=== PATIENT | male | born 1970 | race Caucasian/White ===

== ENCOUNTER → 2019-12-30 | Outpatient (CLI) | payer BC ==
[2019-12-30 09:59] LABS: HEMATOCRIT 43.9 % (42.0-52.0); HEMOGLOBIN 14.4 g/dl (14.0-18.0); MEAN CELL VOLUME 87.5 fl (80.0-94.0); MEAN CORPUSCULAR HGB 28.7 pg (27.0-31.0); MEAN CORPUSCULAR HGB CONC 32.8 g/dl (33.0-37.0); MEAN PLATELET VOLUME 9.3 fl (9.6-12.3); RED BLOOD COUNT 5.02 10*6/uL (4.50-5.90); RED CELL DISTRI WIDTH 12.3 % (0-14.5); WHITE BLOOD COUNT 10.2 10*3/uL (4.8-10.8)
[2019-12-30 10:15] LABS: ALBUMIN 3.4 gm/dl (3.1-4.5); ALKALINE PHOSPHATASE 64 U/L (45-117); BUN 9 mg/dl (7-24); CHLORIDE 106 mmol/L (98-107); CHOLESTEROL 141 mg/dL (<200); CREATININE 0.91 mg/dL (0.70-1.30); HDL CHOLESTEROL 43 mg/dl (40-60); LDL CHOLESTEROL 71 mg/dL (9-159); POTASSIUM 4.1 mmol/L (3.5-5.1); SGOT/AST 11 IU/L (3-35); SGPT/ALT 30 U/L (12-78); SODIUM 141 mmol/L (136-145); TOTAL PROTEIN 7.6 gm/dL (6.4-8.2); TRIGLYCERIDES 134 mg/dl (<150); VLDL CHOLESTEROL 27 mg/dL (6-40)
== END | disposition home or self-care (01) ==
LOC: LAB 09:30
PROVIDERS: Physician Assistant
DX: Z12.5 Encounter for screening for malignant neoplasm of prostate (principal); J02.9 Acute pharyngitis, unspecified; R53.83 Other fatigue

== ENCOUNTER 2020-04-18 11:39 | Emergency (ER) | payer BC ==
[~2020-04-18] VITALS: Ht 177.8 cm; Wt 86.2 kg
[2020-04-18 12:29] LABS: BASO # 0.1 10*3/uL (0.0-0.1); BASO % 0.7 % (0.0-1.0); EOS # 0.1 10*3/uL (0.0-0.4); EOS % 1.2 % (1.0-4.0); HEMATOCRIT 45.6 % (42.0-52.0); LYMPH # 2.2 10*3/uL (1.3-4.4); LYMPH % 31.9 % (27.0-41.0); MEAN CELL VOLUME 87.5 fl (80.0-94.0); MEAN CORPUSCULAR HGB 29.2 pg (27.0-31.0); MEAN CORPUSCULAR HGB CONC 33.3 g/dl (33.0-37.0); MEAN PLATELET VOLUME 9.3 fl (9.6-12.3); MONO # 0.5 10*3/uL (0.1-1.0); MONO % 7.8 % (3.0-9.0); NEUT % 58.3 % (47.0-73.0); PLATELET COUNT AUTOMATED 285 10*3/uL (130-400); RED BLOOD COUNT 5.21 10*6/uL (4.50-5.90); RED CELL DISTRI WIDTH 12.6 % (0-14.5); WHITE BLOOD COUNT 6.8 10*3/uL (4.8-10.8)
[2020-04-18 12:38] LABS: ACT PARTIAL THROMBO TIME 24.1 SECONDS (20.0-32.1)
[2020-04-18 12:42] LABS: BUN 11 mg/dl (7-24); CHLORIDE 107 mmol/L (98-107); CREATININE 0.97 mg/dL (0.70-1.30); POTASSIUM 4.1 mmol/L (3.5-5.1); SODIUM 139 mmol/L (136-145)
[2020-04-18 12:43] LABS: TROPONIN I < 0.015 ng/ml (<0.045)
== END 2020-04-18 20:00 | disposition short-term general hospital (02) ==
LOC: ED 11:39
PROVIDERS: Emergency Medicine
DX: C71.9 Malignant neoplasm of brain, unspecified (principal); R79.1 Abnormal coagulation profile; Z91.040 Latex allergy status

== ENCOUNTER → 2020-04-30 | Outpatient (CLI) | payer BC | END | disposition home or self-care (01) | LOC: RESCLI 00:54 | DX: C71.9 Malignant neoplasm of brain, unspecified (principal); Z76.89 Persons encountering health services in other specified circumstances; Z79.899 Other long term (current) drug therapy; Z98.890 Other specified postprocedural states ==

== ENCOUNTER → 2020-07-10 | Outpatient (CLI) | payer BC ==
[2020-07-10 10:05] LABS: BASO % 0.1 % (0.0-1.0); EOS % 0.3 % (1.0-4.0); HEMATOCRIT 37.3 % (42.0-52.0); LYMPH % 24.8 % (27.0-41.0); MEAN CELL VOLUME 92.8 fl (80.0-94.0); MEAN CORPUSCULAR HGB 30.3 pg (27.0-31.0); MEAN CORPUSCULAR HGB CONC 32.7 g/dl (33.0-37.0); MEAN PLATELET VOLUME 8.8 fl (9.6-12.3); MONO # 0.9 10*3/uL (0.1-1.0); MONO % 11.8 % (3.0-9.0); NEUT # 4.8 10*3/uL (2.3-7.9); NEUT % 60.8 % (47.0-73.0); NUCLEATED RED BLOOD CELL 0.3 % (0.0-0.0); PLATELET COUNT AUTOMATED 205 10*3/uL (130-400); RED BLOOD COUNT 4.02 10*6/uL (4.50-5.90); RED CELL DISTRI WIDTH 17.1 % (0-14.5); WHITE BLOOD COUNT 7.9 10*3/uL (4.8-10.8)
[2020-07-10 10:32] LABS: ALBUMIN 3.4 gm/dl (3.1-4.5); ALKALINE PHOSPHATASE 43 U/L (45-117); BUN 24 mg/dl (7-24); CHLORIDE 102 mmol/L (98-107); CREATININE 0.83 mg/dL (0.70-1.30); POTASSIUM 3.8 mmol/L (3.5-5.1); SGOT/AST 13 IU/L (3-35); SGPT/ALT 62 U/L (12-78); SODIUM 137 mmol/L (136-145); TOTAL PROTEIN 6.8 gm/dL (6.4-8.2)
== END | disposition home or self-care (01) ==
LOC: LAB 00:36
PROVIDERS: Physician Assistant Medical; ATTEND Nurse Anesthetist, Certified Registered
DX: C71.1 Malignant neoplasm of frontal lobe (principal)

== ENCOUNTER → 2020-07-16 | Outpatient (CLI) | payer BC ==
[2020-07-16 11:39] LABS: BASO % 0.2 % (0.0-1.0); EOS % 0.1 % (1.0-4.0); HEMATOCRIT 39.2 % (42.0-52.0); LYMPH # 1.3 10*3/uL (1.3-4.4); LYMPH % 14.8 % (27.0-41.0); MEAN CELL VOLUME 93.6 fl (80.0-94.0); MEAN CORPUSCULAR HGB 30.8 pg (27.0-31.0); MEAN CORPUSCULAR HGB CONC 32.9 g/dl (33.0-37.0); MEAN PLATELET VOLUME 8.9 fl (9.6-12.3); MONO # 0.8 10*3/uL (0.1-1.0); MONO % 8.8 % (3.0-9.0); NEUT # 6.5 10*3/uL (2.3-7.9); NEUT % 73.6 % (47.0-73.0); NUCLEATED RED BLOOD CELL 0.2 % (0.0-0.0); PLATELET COUNT AUTOMATED 186 10*3/uL (130-400); RED BLOOD COUNT 4.19 10*6/uL (4.50-5.90); RED CELL DISTRI WIDTH 17.2 % (0-14.5); WHITE BLOOD COUNT 8.8 10*3/uL (4.8-10.8)
[2020-07-16 11:57] LABS: ALBUMIN 3.5 gm/dl (3.1-4.5); ALKALINE PHOSPHATASE 44 U/L (45-117); BUN 23 mg/dl (7-24); CHLORIDE 103 mmol/L (98-107); CREATININE 0.91 mg/dL (0.70-1.30); POTASSIUM 4.2 mmol/L (3.5-5.1); SGOT/AST 15 IU/L (3-35); SGPT/ALT 63 U/L (12-78); SODIUM 138 mmol/L (136-145)
== END | disposition home or self-care (01) ==
LOC: LAB 11:00
PROVIDERS: ATTEND Internal Medicine Cardiovascular Disease
DX: C71.1 Malignant neoplasm of frontal lobe (principal)

== ENCOUNTER → 2020-07-19 | Outpatient (CLI) | payer BC | END | disposition home or self-care (01) | LOC: RESCLI 01:14 | PROVIDERS: ATTEND Internal Medicine | DX: C71.9 Malignant neoplasm of brain, unspecified (principal); R60.9 Edema, unspecified; E83.42 Hypomagnesemia; R11.2 Nausea with vomiting, unspecified; T45.1X5A Adverse effect of antineoplastic and immunosuppressive drugs, initial encounter; K59.03 Drug induced constipation; K21.9 Gastro-esophageal reflux disease without esophagitis; Z29.8 Encounter for other specified prophylactic measures; Z79.899 Other long term (current) drug therapy; Z79.52 Long term (current) use of systemic steroids; Z98.890 Other specified postprocedural states ==

== ENCOUNTER → 2020-07-31 | Outpatient (CLI) | payer BC ==
[2020-07-31 11:58] LABS: BASO % 0.1 % (0.0-1.0); EOS % 0.2 % (1.0-4.0); HEMATOCRIT 38.8 % (42.0-52.0); LYMPH # 1.4 10*3/uL (1.3-4.4); LYMPH % 16.4 % (27.0-41.0); MEAN CELL VOLUME 93.9 fl (80.0-94.0); MEAN CORPUSCULAR HGB 30.8 pg (27.0-31.0); MEAN CORPUSCULAR HGB CONC 32.7 g/dl (33.0-37.0); MEAN PLATELET VOLUME 9.1 fl (9.6-12.3); MONO # 0.9 10*3/uL (0.1-1.0); MONO % 10.7 % (3.0-9.0); NEUT # 6.2 10*3/uL (2.3-7.9); NEUT % 70.8 % (47.0-73.0); PLATELET COUNT AUTOMATED 197 10*3/uL (130-400); RED BLOOD COUNT 4.13 10*6/uL (4.50-5.90); RED CELL DISTRI WIDTH 16.4 % (0-14.5); WHITE BLOOD COUNT 8.8 10*3/uL (4.8-10.8)
[2020-07-31 12:26] LABS: ALBUMIN 3.6 gm/dl (3.1-4.5); BUN 24 mg/dl (7-24); CHLORIDE 99 mmol/L (98-107); CREATININE 0.82 mg/dL (0.70-1.30); SGOT/AST 15 IU/L (3-35); SGPT/ALT 61 U/L (12-78); SODIUM 134 mmol/L (136-145); TOTAL PROTEIN 6.8 gm/dL (6.4-8.2)
[2020-07-31 12:27] LABS: ALKALINE PHOSPHATASE 39 U/L (45-117)
== END | disposition home or self-care (01) ==
LOC: LAB 11:05
PROVIDERS: ATTEND Physician Assistant Medical
DX: C71.1 Malignant neoplasm of frontal lobe (principal)

== ENCOUNTER → 2020-08-09 | Outpatient (CLI) | payer BC ==
[2020-08-09 10:48] LABS: BASO % 0.2 % (0.0-1.0); EOS % 0.3 % (1.0-4.0); HEMATOCRIT 38.4 % (42.0-52.0); LYMPH % 18.8 % (27.0-41.0); MEAN CELL VOLUME 93.2 fl (80.0-94.0); MEAN CORPUSCULAR HGB 31.3 pg (27.0-31.0); MEAN CORPUSCULAR HGB CONC 33.6 g/dl (33.0-37.0); MEAN PLATELET VOLUME 8.7 fl (9.6-12.3); MONO # 1.1 10*3/uL (0.1-1.0); MONO % 10.9 % (3.0-9.0); NEUT # 7.1 10*3/uL (2.3-7.9); NEUT % 67.7 % (47.0-73.0); NUCLEATED RED BLOOD CELL 0.4 % (0.0-0.0); PLATELET COUNT AUTOMATED 192 10*3/uL (130-400); RED BLOOD COUNT 4.12 10*6/uL (4.50-5.90); RED CELL DISTRI WIDTH 15.9 % (0-14.5); WHITE BLOOD COUNT 10.5 10*3/uL (4.8-10.8)
[2020-08-09 10:57] LABS: ACT PARTIAL THROMBO TIME 20.6 SECONDS (20.0-32.1); INTERNATIONAL NORM RATIO 0.9 (2.0-3.5)
[2020-08-09 11:02] LABS: ALBUMIN 3.6 gm/dl (3.1-4.5); ALKALINE PHOSPHATASE 44 U/L (45-117); BUN 31 mg/dl (7-24); CHLORIDE 103 mmol/L (98-107); CREATININE 0.91 mg/dL (0.70-1.30); POTASSIUM 4.1 mmol/L (3.5-5.1); SGOT/AST 10 IU/L (3-35); SGPT/ALT 62 U/L (12-78); SODIUM 137 mmol/L (136-145); TOTAL PROTEIN 6.9 gm/dL (6.4-8.2)
== END | disposition home or self-care (01) ==
LOC: LAB 04:33
PROVIDERS: ATTEND Internal Medicine Medical Oncology
DX: C71.0 Malignant neoplasm of cerebrum, except lobes and ventricles (principal); T45.1X5A Adverse effect of antineoplastic and immunosuppressive drugs, initial encounter; R11.0 Nausea

== ENCOUNTER → 2020-08-15 | Outpatient (CLI) | payer BC ==
[2020-08-15 09:16] LABS: HEMATOCRIT 39.2 % (42.0-52.0); MEAN CELL VOLUME 95.4 fl (80.0-94.0); MEAN CORPUSCULAR HGB 31.4 pg (27.0-31.0); MEAN CORPUSCULAR HGB CONC 32.9 g/dl (33.0-37.0); NUCLEATED RED BLOOD CELL 0.1 10*3/uL (0.0-0.0); NUCLEATED RED BLOOD CELL 0.3 % (0.0-0.0); PLATELET COUNT AUTOMATED 156 10*3/uL (130-400); RED BLOOD COUNT 4.11 10*6/uL (4.50-5.90); RED CELL DISTRI WIDTH 15.6 % (0-14.5)
[2020-08-15 09:28] LABS: ACT PARTIAL THROMBO TIME 20.1 SECONDS (20.0-32.1)
[2020-08-15 09:31] LABS: ALBUMIN 3.3 gm/dl (3.1-4.5); ALKALINE PHOSPHATASE 75 U/L (45-117); BUN 23 mg/dl (7-24); CHLORIDE 103 mmol/L (98-107); CREATININE 1.02 mg/dL (0.70-1.30); SGOT/AST 13 IU/L (3-35); SGPT/ALT 54 U/L (12-78); SODIUM 138 mmol/L (136-145); TOTAL PROTEIN 6.7 gm/dL (6.4-8.2)
[2020-08-15 09:55] LABS: TOTAL CELLS COUNTED 100 #CELLS
[2020-08-15 09:57] LABS: PLATELET SUFFICIENCY NORMAL (NORMAL)
== END | disposition home or self-care (01) ==
LOC: LAB 01:01
PROVIDERS: Internal Medicine Medical Oncology; ATTEND Physician Assistant Medical
DX: C71.1 Malignant neoplasm of frontal lobe (principal)

== ENCOUNTER → 2020-08-20 | Outpatient (CLI) | payer BC ==
[2020-08-20 09:37] LABS: HEMATOCRIT 37.9 % (42.0-52.0); MEAN CELL VOLUME 97.4 fl (80.0-94.0); MEAN CORPUSCULAR HGB 31.4 pg (27.0-31.0); MEAN CORPUSCULAR HGB CONC 32.2 g/dl (33.0-37.0); MEAN PLATELET VOLUME 9.8 fl (9.6-12.3); NUCLEATED RED BLOOD CELL 0.1 % (0.0-0.0); PLATELET COUNT AUTOMATED 115 10*3/uL (130-400); RED BLOOD COUNT 3.89 10*6/uL (4.50-5.90); RED CELL DISTRI WIDTH 15.6 % (0-14.5); WHITE BLOOD COUNT 13.4 10*3/uL (4.8-10.8)
[2020-08-20 09:46] LABS: ACT PARTIAL THROMBO TIME 20.8 SECONDS (20.0-32.1); INTERNATIONAL NORM RATIO 0.9 (2.0-3.5)
[2020-08-20 10:00] LABS: PLATELET SUFFICIENCY LOW (NORMAL); TOTAL CELLS COUNTED 100 #CELLS
[2020-08-20 10:36] LABS: ALBUMIN 3.5 gm/dl (3.1-4.5); BUN 23 mg/dl (7-24); CHLORIDE 103 mmol/L (98-107); POTASSIUM 3.9 mmol/L (3.5-5.1); SGOT/AST 21 IU/L (3-35); SGPT/ALT 61 U/L (12-78); SODIUM 138 mmol/L (136-145)
[2020-08-20 10:39] LABS: ALKALINE PHOSPHATASE 160 U/L (45-117); TOTAL PROTEIN 6.7 gm/dL (6.4-8.2)
== END | disposition home or self-care (01) ==
LOC: LAB 00:32
PROVIDERS: ATTEND Physician Assistant Medical
DX: C71.1 Malignant neoplasm of frontal lobe (principal)

== ENCOUNTER → 2020-08-27 | Outpatient (CLI) | payer BC ==
[~2020-08-27] MED LIST: 'KLONOPIN0.5 MG PO; 8 HOUR PAIN RE650 M1 PO; DEXAMETHASONE2 MG PO; LASIX20 MG PO; LEVETIRACETAM500 MG PO; MULTIVITAMINS1 EAC5 PO; Magnesium Oxid400 MG PO; OXYCODONE HCL5 M1 PO; PANTOPRAZOLE SO40 MG PO; POTASSIUM99 M3 PO; SENOKOT8.6 MG PO; SEPTDS PO; VITAMIN C500 M4 PO; ZINC50 M4 PO
[2020-08-27 10:43] LABS: HEMATOCRIT 37.7 % (42.0-52.0); MEAN CELL VOLUME 96.9 fl (80.0-94.0); MEAN CORPUSCULAR HGB 31.4 pg (27.0-31.0); MEAN CORPUSCULAR HGB CONC 32.4 g/dl (33.0-37.0); MEAN PLATELET VOLUME 8.8 fl (9.6-12.3); NUCLEATED RED BLOOD CELL 0.2 % (0.0-0.0); PLATELET COUNT AUTOMATED 203 10*3/uL (130-400); RED BLOOD COUNT 3.89 10*6/uL (4.50-5.90); RED CELL DISTRI WIDTH 15.4 % (0-14.5); WHITE BLOOD COUNT 13.7 10*3/uL (4.8-10.8)
[2020-08-27 10:55] LABS: INTERNATIONAL NORM RATIO 0.9 (2.0-3.5)
[2020-08-27 11:01] LABS: PLATELET SUFFICIENCY NORMAL (NORMAL); TOTAL CELLS COUNTED 100 #CELLS
[2020-08-27 11:14] LABS: ALBUMIN 3.5 gm/dl (3.1-4.5); BUN 23 mg/dl (7-24); CHLORIDE 105 mmol/L (98-107); CREATININE 0.77 mg/dL (0.70-1.30); POTASSIUM 3.6 mmol/L (3.5-5.1); SGOT/AST 13 IU/L (3-35); SGPT/ALT 70 U/L (12-78); SODIUM 139 mmol/L (136-145); TOTAL PROTEIN 6.9 gm/dL (6.4-8.2)
[2020-08-27 11:15] LABS: ALKALINE PHOSPHATASE 82 U/L (45-117)
[2020-08-27 11:28] LABS: ACT PARTIAL THROMBO TIME < 20.0 SECONDS (20.0-32.1)
== END | disposition home or self-care (01) ==
LOC: LAB 00:30 → EDSTATUS 10:14 → LAB 14:30
PROVIDERS: ATTEND Physician Assistant Medical
DX: C71.1 Malignant neoplasm of frontal lobe (principal); R73.03 Prediabetes

== ENCOUNTER → 2020-09-04 | Outpatient (CLI) | payer BC ==
[2020-09-04 10:07] LABS: BASO % 0.1 % (0.0-1.0); EOS % 0.3 % (1.0-4.0); HEMATOCRIT 37.8 % (42.0-52.0); LYMPH # 1.4 10*3/uL (1.3-4.4); LYMPH % 11.6 % (27.0-41.0); MEAN CELL VOLUME 95.2 fl (80.0-94.0); MEAN CORPUSCULAR HGB 31.7 pg (27.0-31.0); MEAN CORPUSCULAR HGB CONC 33.3 g/dl (33.0-37.0); MEAN PLATELET VOLUME 8.6 fl (9.6-12.3); MONO # 1.1 10*3/uL (0.1-1.0); MONO % 9.5 % (3.0-9.0); NEUT # 9.3 10*3/uL (2.3-7.9); NEUT % 77.1 % (47.0-73.0); PLATELET COUNT AUTOMATED 196 10*3/uL (130-400); RED BLOOD COUNT 3.97 10*6/uL (4.50-5.90); RED CELL DISTRI WIDTH 14.8 % (0-14.5)
[2020-09-04 10:37] LABS: ACT PARTIAL THROMBO TIME 20.2 SECONDS (20.0-32.1); INTERNATIONAL NORM RATIO 0.9 (2.0-3.5)
[2020-09-04 10:39] LABS: ALBUMIN 3.4 gm/dl (3.1-4.5); ALKALINE PHOSPHATASE 69 U/L (45-117); BUN 19 mg/dl (7-24); CHLORIDE 103 mmol/L (98-107); CREATININE 0.88 mg/dL (0.70-1.30); POTASSIUM 3.6 mmol/L (3.5-5.1); SGOT/AST 18 IU/L (3-35); SGPT/ALT 69 U/L (12-78); SODIUM 138 mmol/L (136-145); TOTAL PROTEIN 6.7 gm/dL (6.4-8.2)
== END | disposition home or self-care (01) ==
LOC: LAB 04:59
PROVIDERS: ATTEND Physician Assistant Medical
DX: C71.1 Malignant neoplasm of frontal lobe (principal)

== ENCOUNTER → 2020-09-09 | Outpatient (CLI) | payer BC ==
[2020-09-09 11:36] LABS: BASO % 0.2 % (0.0-1.0); HEMATOCRIT 39.2 % (42.0-52.0); LYMPH # 0.8 10*3/uL (1.3-4.4); LYMPH % 7.3 % (27.0-41.0); MEAN CORPUSCULAR HGB 31.8 pg (27.0-31.0); MEAN CORPUSCULAR HGB CONC 32.4 g/dl (33.0-37.0); MEAN PLATELET VOLUME 8.7 fl (9.6-12.3); MONO # 0.8 10*3/uL (0.1-1.0); MONO % 7.2 % (3.0-9.0); NEUT # 9.3 10*3/uL (2.3-7.9); NEUT % 83.4 % (47.0-73.0); PLATELET COUNT AUTOMATED 186 10*3/uL (130-400); RED CELL DISTRI WIDTH 14.6 % (0-14.5); WHITE BLOOD COUNT 11.2 10*3/uL (4.8-10.8)
[2020-09-09 11:47] LABS: ACT PARTIAL THROMBO TIME 20.5 SECONDS (20.0-32.1); INTERNATIONAL NORM RATIO 0.9 (2.0-3.5)
[2020-09-09 12:04] LABS: ALBUMIN 3.5 gm/dl (3.1-4.5); ALKALINE PHOSPHATASE 64 U/L (45-117); BUN 18 mg/dl (7-24); CHLORIDE 104 mmol/L (98-107); POTASSIUM 4.2 mmol/L (3.5-5.1); SGOT/AST 14 IU/L (3-35); SGPT/ALT 74 U/L (12-78); SODIUM 140 mmol/L (136-145); TOTAL PROTEIN 6.6 gm/dL (6.4-8.2)
== END | disposition home or self-care (01) ==
LOC: LAB 10:56
PROVIDERS: ATTEND Physician Assistant Medical
DX: C71.1 Malignant neoplasm of frontal lobe (principal)

== ENCOUNTER → 2020-09-17 | Outpatient (CLI) | payer BC ==
[2020-09-17 11:06] LABS: EOS % 0.4 % (1.0-4.0); HEMATOCRIT 38.9 % (42.0-52.0); LYMPH % 10.7 % (27.0-41.0); MEAN CELL VOLUME 95.6 fl (80.0-94.0); MEAN CORPUSCULAR HGB 31.7 pg (27.0-31.0); MEAN CORPUSCULAR HGB CONC 33.2 g/dl (33.0-37.0); MEAN PLATELET VOLUME 9.1 fl (9.6-12.3); MONO # 0.8 10*3/uL (0.1-1.0); MONO % 8.5 % (3.0-9.0); NEUT # 7.7 10*3/uL (2.3-7.9); NEUT % 79.3 % (47.0-73.0); PLATELET COUNT AUTOMATED 183 10*3/uL (130-400); RED BLOOD COUNT 4.07 10*6/uL (4.50-5.90); RED CELL DISTRI WIDTH 14.6 % (0-14.5); WHITE BLOOD COUNT 9.7 10*3/uL (4.8-10.8)
[2020-09-17 11:19] LABS: ACT PARTIAL THROMBO TIME 20.5 SECONDS (20.0-32.1); ALBUMIN 3.6 gm/dl (3.1-4.5); ALKALINE PHOSPHATASE 57 U/L (45-117); BUN 21 mg/dl (7-24); CHLORIDE 103 mmol/L (98-107); CREATININE 0.84 mg/dL (0.70-1.30); INTERNATIONAL NORM RATIO 0.9 (2.0-3.5); POTASSIUM 3.7 mmol/L (3.5-5.1); SGOT/AST 21 IU/L (3-35); SGPT/ALT 91 U/L (12-78); SODIUM 138 mmol/L (136-145); TOTAL PROTEIN 6.7 gm/dL (6.4-8.2)
== END | disposition home or self-care (01) ==
LOC: LAB 00:25
PROVIDERS: ATTEND Physician Assistant Medical
DX: C71.1 Malignant neoplasm of frontal lobe (principal)

== ENCOUNTER → 2020-09-23 | Outpatient (CLI) | payer BC ==
[2020-09-23 09:12] LABS: BASO % 0.1 % (0.0-1.0); EOS % 0.1 % (1.0-4.0); HEMATOCRIT 41.6 % (42.0-52.0); LYMPH # 0.9 10*3/uL (1.3-4.4); LYMPH % 8.4 % (27.0-41.0); MEAN CELL VOLUME 96.3 fl (80.0-94.0); MEAN CORPUSCULAR HGB 31.7 pg (27.0-31.0); MEAN CORPUSCULAR HGB CONC 32.9 g/dl (33.0-37.0); MEAN PLATELET VOLUME 8.9 fl (9.6-12.3); MONO # 0.9 10*3/uL (0.1-1.0); MONO % 8.4 % (3.0-9.0); NEUT # 8.9 10*3/uL (2.3-7.9); NEUT % 82.2 % (47.0-73.0); PLATELET COUNT AUTOMATED 189 10*3/uL (130-400); RED BLOOD COUNT 4.32 10*6/uL (4.50-5.90); RED CELL DISTRI WIDTH 14.5 % (0-14.5); WHITE BLOOD COUNT 10.8 10*3/uL (4.8-10.8)
[2020-09-23 09:33] LABS: ALBUMIN 3.7 gm/dl (3.1-4.5); BUN 14 mg/dl (7-24); CHLORIDE 102 mmol/L (98-107); CREATININE 0.91 mg/dL (0.70-1.30); POTASSIUM 3.9 mmol/L (3.5-5.1); SGOT/AST 19 IU/L (3-35); SGPT/ALT 91 U/L (12-78); SODIUM 139 mmol/L (136-145); TOTAL PROTEIN 7.1 gm/dL (6.4-8.2)
[2020-09-23 09:34] LABS: ALKALINE PHOSPHATASE 65 U/L (45-117)
[2020-09-23 10:02] LABS: INTERNATIONAL NORM RATIO 0.9 (2.0-3.5)
[2020-09-23 10:05] LABS: ACT PARTIAL THROMBO TIME < 20.0 SECONDS (20.0-32.1)
== END | disposition home or self-care (01) ==
LOC: LAB 05:01
PROVIDERS: Physician Assistant Medical; ATTEND Internal Medicine Medical Oncology
DX: C71.1 Malignant neoplasm of frontal lobe (principal); R11.0 Nausea

== ENCOUNTER 2020-10-13 11:03 | Inpatient (IN) | payer BC ==
[~2020-10-13] VITALS: Ht 177.8 cm; Wt 106.8 kg
[2020-10-13] VITALS (10 sets, daily range): BP systolic 114–134; BP diastolic 67–81
[2020-10-13 11:37] LABS: HEMATOCRIT 34.6 % (42.0-52.0); MEAN CORPUSCULAR HGB CONC 32.7 g/dl (33.0-37.0); MEAN PLATELET VOLUME 9.2 fl (9.6-12.3); PLATELET COUNT AUTOMATED 179 10*3/uL (130-400); RED BLOOD COUNT 3.53 10*6/uL (4.50-5.90); RED CELL DISTRI WIDTH 15.8 % (0-14.5); WHITE BLOOD COUNT 14.8 10*3/uL (4.8-10.8)
[2020-10-13 11:49] LABS: ABG BASE EXCESS 0.2 mmol/L (-2.0-2.0); ARTERIAL BLOOD GAS PH 7.453 (7.35-7.45)
[2020-10-13 11:49] LABS: ACT PARTIAL THROMBO TIME 20.8 SECONDS (20.0-32.1); INTERNATIONAL NORM RATIO 0.9 (2.0-3.5)
[2020-10-13 11:52] LABS: ALBUMIN 2.9 gm/dl (3.1-4.5); ALKALINE PHOSPHATASE 72 U/L (45-117); BUN 18 mg/dl (7-24); CHLORIDE 100 mmol/L (98-107); CREATININE 0.89 mg/dL (0.70-1.30); POTASSIUM 4.4 mmol/L (3.5-5.1); SGOT/AST 28 IU/L (3-35); SGPT/ALT 100 U/L (12-78); SODIUM 135 mmol/L (136-145); TOTAL PROTEIN 6.8 gm/dL (6.4-8.2)
[2020-10-13 11:54] LABS: TROPONIN I < 0.015 ng/ml (<0.045)
[2020-10-13 11:57] LABS: BURR CELLS FEW; PLATELET SUFFICIENCY NORMAL (NORMAL); POLYCHROMASIA SLIGHT; TOTAL CELLS COUNTED 100 #CELLS
--- NOTE | 2020-10-13 13:00 | NUR ---
PATIENT PLACED ON BI-PAP 14/08, 75%. PULSE OX 92%.
[2020-10-13 17:25] LABS: BILIRUBIN Negative (Negative); BLOOD Negative (Negative); CLARITY Clear (Clear); COLOR Yellow (Yellow); GLUCOSE Negative (Negative); KETONE Negative (Negative); LEUKO ESTERASE Negative (Negative); NITRITE Negative (Negative); SPECIFIC GRAVITY 1.015 (1.001-1.030); UROBILINOGEN 0.2 E.U./dl (0.0-1.0)
--- NOTE | 2020-10-13 18:10 | NUR ---
PATIENT RESTING IN BED WITH SISTER AT BEDSIDE. BIPAP IN PLACE PER ORDER. NO S/S OF DISTRESS. WILL CONTINUE TO MONITOR
[2020-10-13 18:21] LABS: WBC 0-2 wbc/hpf (0-5)
[2020-10-13] MEDS ORDERED: LEVETIRACETAM500 MG PO (18:38)
[2020-10-13] MEDS ORDERED: LASIX20 MG PO (18:40)
[2020-10-13] MEDS ORDERED: POTASSIUM99 M3 PO (18:41)
[2020-10-13] MEDS ORDERED: 'KLONOPIN0.5 MG PO (18:42)
[2020-10-13] MEDS ORDERED: DEXAMETHASONE2 MG PO (18:44)
[2020-10-13] MEDS ORDERED: Magnesium Oxid400 MG PO (18:45)
[2020-10-13] MEDS ORDERED: SENOKOT8.6 MG PO (18:46)
[2020-10-13] MEDS ORDERED: PANTOPRAZOLE SO40 MG PO (18:46)
[2020-10-13] MEDS ORDERED: VITAMIN C500 M4 PO (18:47)
[2020-10-13] MEDS ORDERED: ZINC50 M4 PO (18:47)
[2020-10-13] MEDS ORDERED: 8 HOUR PAIN RE650 M1 PO (18:48)
[2020-10-13] MEDS ORDERED: OXYCODONE HCL5 M1 PO (18:48)
[2020-10-13] MEDS ORDERED: SEPTDS PO (18:49)
[2020-10-13] MEDS ORDERED: MULTIVITAMINS1 EAC5 PO (18:50)
--- NOTE | 2020-10-13 20:33 | NUR ---
THE SEAL ON HTE BIPAP WAS NOT SEALING RESP MADE AWARE. PT ASKING TO EAT AT THIS TIME. I ATTEMPTED TO PLACE THE PATIENT ON A NRB SO HE COULD EAT AT THAT TIME THE PULSE OX DECREASED TO 85% RESP HERE AT THIS TIME. OB MURRIETA RN.
[2020-10-14] VITALS (8 sets, daily range): BP systolic 112–138; BP diastolic 63–84
--- NOTE | 2020-10-14 01:50 | NUR ---
PT SITTING UP TO SIDE OF THE BED AND AT THIS TIME PULSE OX DROPS TO 83% ON HIS BIPAP. RESP IN ROOM. BO MURRIETA RN. 0215 PULSE OX AT 95% WITH BIPAP AT THIS TIME. BO YOUNG RN.
--- NOTE | 2020-10-14 03:30 | NUR ---
A 50, admitted to ICCU, under the services of GARY Owens DO with a diagnosis of ACUTE HYPOXIC RESP FAILURE DUE TO COVID 19. Chief complaint is SOB. Patient arrived via stretcher from ER. Monitor applied. Initial assessment completed. Vital signs taken and recorded. GARY OWENS DO notified of admission to the unit. Orders received. See assessment for past medical history, medications and allergies. Patient and/or family oriented to unit. [facility] visitation policy reviewed. Clothing/patient valuable form completed. JUS ALVARADO
[2020-10-14 04:12] LABS: ABG BASE EXCESS 2.1 mmol/L (-2.0-2.0); ARTERIAL BLOOD GAS PH 7.451 (7.35-7.45)
--- NOTE | 2020-10-14 04:30 | NUR ---
DR ACOSTA NOTIFIED OF CONSULT. NEW ORDER TO DECREASE O2 TO 60%. ABG IN AM. KEEP ON BIPAP.
[2020-10-14 05:58] LABS: ALBUMIN 2.8 gm/dl (3.1-4.5); ALKALINE PHOSPHATASE 74 U/L (45-117); BUN 19 mg/dl (7-24); CHLORIDE 101 mmol/L (98-107); CREATININE 0.83 mg/dL (0.70-1.30); LDH 584 U/L (87-241); POTASSIUM 4.1 mmol/L (3.5-5.1); SGOT/AST 36 IU/L (3-35); SGPT/ALT 101 U/L (12-78); SODIUM 136 mmol/L (136-145); TOTAL PROTEIN 6.9 gm/dL (6.4-8.2)
[2020-10-14 06:31] LABS: HEMATOCRIT 35.3 % (42.0-52.0); MEAN CELL VOLUME 98.1 fl (80.0-94.0); MEAN CORPUSCULAR HGB 31.4 pg (27.0-31.0); MEAN PLATELET VOLUME 9.6 fl (9.6-12.3); PLATELET COUNT AUTOMATED 173 10*3/uL (130-400); RED CELL DISTRI WIDTH 15.9 % (0-14.5); WHITE BLOOD COUNT 12.3 10*3/uL (4.8-10.8)
--- NOTE | 2020-10-14 06:35 | NUR ---
DR VALENZUELA ANSWERING SERVICE NOTIFIED OF CONSULT.
[2020-10-14 07:18] LABS: TOTAL CELLS COUNTED 100 #CELLS
[2020-10-14 07:19] LABS: OVALOCYTES FEW; PLATELET SUFFICIENCY NORMAL (NORMAL); POLYCHROMASIA SLIGHT
[2020-10-14 08:01] LABS: ABG BASE EXCESS 2.9 mmol/L (-2.0-2.0); ARTERIAL BLOOD GAS PH 7.462 (7.35-7.45)
--- NOTE | 2020-10-14 09:00 | NUR ---
Patient is on bipap and in COVID isolation precautions. CM will continue to follow for any discharge planning needs.
--- NOTE | 2020-10-14 11:00 | NUR ---
PT NEEDING INCREASING FIO2. PT NOW AT [ 14/08 WITH 100% FIO2 TO KEEP POX AT 90%. DR ACOSTA NOTIFIED AND ORDER FOR INTUBATION. CONSENT OBTAINED BY PT'S SISTER PRECIUOS WHO IS POA AND ALSO EXPLAINED TO PT AT BEDSIDE.
--- NOTE | 2020-10-14 11:03 | NUR ---
Unable to assess patient at this time due to patient's condition.
--- NOTE | 2020-10-14 11:30 | NUR ---
Infomed consent obtained from family by Dr. ACOSTA for elective intubation. Patient intubated with 8 Ukrainian endotracheal tube orally X 1 attempts. Patient sedated with DIPRIVAN Respiratory therapy at bedside. Crash cart with emergency drugs available. Endotracheal tube inflated with 8cc's. Lungs auscultated for equality of breath sounds. Tube secured with Tube tamer at 23 cm's. at level of LIP. Patient tolerated procedure WELL. Portable chest X-ray obtained and reviewed for tube placement. Patient connected to ventilator CMV mode, 20 tidal volume, 500 FIO2, 10 PEEP, and pressure support. MODESTA BRYAN
[2020-10-14 14:24] LABS: ABG BASE EXCESS 3.1 mmol/L (-2.0-2.0); ARTERIAL BLOOD GAS PH 7.478 (7.35-7.45)
--- NOTE | 2020-10-14 15:03 | NUR ---
DECREASED FIO2 TO 60% PER DR. ACOSTA.
--- NOTE | 2020-10-14 15:12 | NUR ---
Nutritional Support Services Note: Pt dx of acute hypoxemic respiratory failure due to COVID 19, recent hx of brain surgery. Healing surgical incision noted. Pt currently on a vent. Will follow for nutritional support. Rosalina Huang Rdn Ld
--- NOTE | 2020-10-14 16:02 | NUR ---
OT NOTE Nursing screen received and chart reviewed. Patient admitted for suspected COVID-19 and acute respiratory failure. Patient is currently intubated. Please consult OT services when patient is extubated and medically appropriate for an OT eval. Thank you. Perla Milner OTR/L
--- NOTE | 2020-10-14 16:09 | NUR ---
PHYSICAL THERAPY Nursing screen received and chart reviewed. Patient admitted with acute respiratory failure due to Covid-19. Patient underwent intubation this date for respiratory distress. Recommend skilled PT evaluation when medically appropriate. Thank you. Nicolette Blanchard,PT,DPT
--- NOTE | 2020-10-14 21:00 | NUR ---
Patient resting on vent, no signs of distress. Patient does open eyes and moves arms about. Will continue to monitor.
--- NOTE | 2020-10-14 23:08 | NUR ---
Patient restless, versed given. Effective immediately. Monitoring.
[2020-10-15] VITALS (8 sets, daily range): BP systolic 111–177; BP diastolic 58–76
--- NOTE | 2020-10-15 01:44 | NUR ---
24 HR chart check completed.
[2020-10-15 06:14] LABS: ALBUMIN 2.3 gm/dl (3.1-4.5); BUN 17 mg/dl (7-24); CHLORIDE 102 mmol/L (98-107); POTASSIUM 3.5 mmol/L (3.5-5.1); SGOT/AST 41 IU/L (3-35); SGPT/ALT 98 U/L (12-78); SODIUM 136 mmol/L (136-145); TOTAL PROTEIN 6.2 gm/dL (6.4-8.2)
[2020-10-15 06:16] LABS: ALKALINE PHOSPHATASE 67 U/L (45-117); LDH 463 U/L (87-241)
[2020-10-15 06:26] LABS: BASO % 0.2 % (0.0-1.0); EOS % 0.2 % (1.0-4.0); HEMATOCRIT 29.9 % (42.0-52.0); LYMPH # 0.5 10*3/uL (1.3-4.4); LYMPH % 8.9 % (27.0-41.0); MEAN CELL VOLUME 96.5 fl (80.0-94.0); MEAN CORPUSCULAR HGB 31.6 pg (27.0-31.0); MEAN CORPUSCULAR HGB CONC 32.8 g/dl (33.0-37.0); MEAN PLATELET VOLUME 9.7 fl (9.6-12.3); MONO # 0.3 10*3/uL (0.1-1.0); MONO % 5.2 % (3.0-9.0); NEUT # 4.7 10*3/uL (2.3-7.9); NEUT % 84.3 % (47.0-73.0); PLATELET COUNT AUTOMATED 154 10*3/uL (130-400); WHITE BLOOD COUNT 5.6 10*3/uL (4.8-10.8)
[2020-10-15 07:40] LABS: ABG BASE EXCESS 2.6 mmol/L (-2.0-2.0); ARTERIAL BLOOD GAS PH 7.483 (7.35-7.45)
--- NOTE | 2020-10-15 07:45 | NUR ---
PT'S PULSE OX DROPPING INTO THE 70'S ON 60% FI02 VIA VENT. PT SUCTIONED AND REPOSITIONED. DR ACOSTA NOTIFIED AND ORDER TO INCREASE FIO2. FI02 NEEDED TO BE INCREASED TO 100% AND PT'S PULSE OX 89-91%.
--- NOTE | 2020-10-15 08:26 | NUR ---
O2 INCREASED TO 100% AT 0815, DUE TO LOW SAT.
--- NOTE | 2020-10-15 08:31 | NUR ---
PT. PULSE OX NOW 89% ON 100% FIO2.
--- NOTE | 2020-10-15 08:51 | NUR ---
Attempted to reach sister, Macy, with no success. Left voicemail. Awaiting return call.
--- NOTE | 2020-10-15 09:17 | NUR ---
PT'S TEMPERATURE UP TO 102.7. TYLENOL 650MG GIVEN AT THIS TIME.
--- NOTE | 2020-10-15 09:20 | NUR ---
DR MORRIS IN TO SEE PT AND UPDATED ON PT'S CONDITION. DR VALENZUELA CHANGED AT THIS TIME TO MAKE HER AWARE OF PT'S CONDITION AND TEMP CONTINUING TO RISE TO 103.3 AT THIS TIME.
[2020-10-15 10:21] LABS: ARTERIAL BLOOD GAS PH 7.428 (7.35-7.45)
--- NOTE | 2020-10-15 10:35 | NUR ---
O2 DECREASED TO 90% AFTER ABG RESULTS ON 100%. RN AWARE.
[2020-10-15 13:39] LABS: ABG BASE EXCESS 0.2 mmol/L (-2.0-2.0); ARTERIAL BLOOD GAS PH 7.402 (7.35-7.45)
--- NOTE | 2020-10-15 14:19 | NUR ---
RESIDENT DR. Alma CANTOR NOTIFIED OF PT'S BLOOD PRESSURE OF 180'S SYSTOLIC. PT'S TEMP DOWN TO 101.1 AFTER TYLENOL GIVEN AND BEING PLACED ON COOLING BLANKET.
--- NOTE | 2020-10-15 15:30 | NUR ---
DR VARGAS GIVEN THE NUMBERS FOR PT'S SURGEON NATE ROMANO DUE TO DR ACOSTA REQUEST TO CHECK WITH THEM ABOUT PRONING OR OTHER INTERVENTIONS IN REGARDS TO HIS RECENT CRANIOTOMY. DR VARGAS STATED SHE PASSED ALONG TO DR MORRIS TO CONTACT THEM.
--- NOTE | 2020-10-15 20:00 | NUR ---
PT RESTING IN BED WITH EYES CLOSED. ENDOTUBE PATENT, TIES SECURE, VENT SETTINGS VERIFIED AND FUNCTIONING WIHTOUT DIFFICULTY. OGT PATENT, PLACEMENT VERIFIED VIA AIR BOLUS AND TF INFUSING ORDERED AND KEYA WELL. RIGHT IJ MLC AND RIGHT ARTLINE PATENT, DRESSINGS DRY AND INTACT, ALL PORTS FLUSHED WITH EASE. DIPRIVAN AND NIMBEX INFUSING FOR SEDATION ORDERED. FLOYD PATENT FOR DARK DIMPLE URINE. ISOLATION PRECAUTIONS MAINTAINED.
--- NOTE | 2020-10-15 20:30 | NUR ---
Vent changes made. Vt to 475 and Peep to 14+ ABG in an hour and facetime
[2020-10-15 21:44] LABS: ABG BASE EXCESS -1.3 mmol/L (-2.0-2.0); ARTERIAL BLOOD GAS PH 7.36 (7.35-7.45)
--- NOTE | 2020-10-15 22:45 | NUR ---
DR ROMANO FROM [facility] CALLED IN AND CONDESCENDING TO STAFF. STATES "WHY ON EARTH WOULD YOU NOT PRONE A PT IF IT WILL SAVE THEIR LIFE". EXPLAINED TO THIS DOCTOR THE CIRCUMSTANCES. HE REQUESTED THAT THE ATTENDING AND DR ACOSTA CALL HIM SRIDHAR ABOUT TRANSFER. SISTER PRECIOUS WHO IS POA NOTIFIED AND DOES NOT WITH FOR PT TO BE TRANSFERRED TONIGHT. DR ACOSTA AND DR DEL VALLE BOTH NOTIFIED AND ORDER FOR PRONE GIVEN. SISTER PRECIOUS REQUESTS THAT DOCTORS CONFER IN THE MORNING ABOUT CARE AND TRANSFER IF NEEDED.
[2020-10-16] VITALS (7 sets, daily range): BP systolic 130–160; BP diastolic 70–78
--- NOTE | 2020-10-16 | NUR ---
ANESTHESIA HERE AND PT PRONED.
--- NOTE | 2020-10-16 00:05 | NUR ---
Pt proned with no complications. SPO2 88% on FiO2 90%
[2020-10-16 02:22] LABS: ARTERIAL BLOOD GAS PH 7.263 (7.35-7.45)
[2020-10-16 06:00] LABS: ALBUMIN 2.1 gm/dl (3.1-4.5); BUN 9 mg/dl (7-24); CHLORIDE 101 mmol/L (98-107); POTASSIUM 3.9 mmol/L (3.5-5.1); SODIUM 134 mmol/L (136-145)
--- NOTE | 2020-10-16 06:00 | NUR ---
MORPHINE, VERSED, AND LABETALOL GIVEN THROUGHOUT SHIFT HAVE BEEN EFFECTIVE.
[2020-10-16 06:03] LABS: ALKALINE PHOSPHATASE 76 U/L (45-117); CREATININE 0.41 mg/dL (0.70-1.30); LDH 442 U/L (87-241); SGOT/AST 42 IU/L (3-35); SGPT/ALT 104 U/L (12-78); TOTAL PROTEIN 6.4 gm/dL (6.4-8.2)
[2020-10-16 06:16] LABS: HEMATOCRIT 33.1 % (42.0-52.0); MEAN CELL VOLUME 95.9 fl (80.0-94.0); MEAN CORPUSCULAR HGB 31.6 pg (27.0-31.0); MEAN CORPUSCULAR HGB CONC 32.9 g/dl (33.0-37.0); MEAN PLATELET VOLUME 9.6 fl (9.6-12.3); PLATELET COUNT AUTOMATED 148 10*3/uL (130-400); RED BLOOD COUNT 3.45 10*6/uL (4.50-5.90); RED CELL DISTRI WIDTH 15.9 % (0-14.5); WHITE BLOOD COUNT 8.3 10*3/uL (4.8-10.8)
[2020-10-16 06:59] LABS: PLATELET SUFFICIENCY NORMAL (NORMAL); TOTAL CELLS COUNTED 100 #CELLS
--- NOTE | 2020-10-16 07:30 | NUR ---
SWAM PTS ARMS
[2020-10-16 07:49] LABS: ABG BASE EXCESS -1.3 mmol/L (-2.0-2.0); ARTERIAL BLOOD GAS PH 7.28 (7.35-7.45)
--- NOTE | 2020-10-16 10:35 | NUR ---
PT SWAM, HEAD ADJUSTED TO LEFT SIDE.
[2020-10-16 13:47] LABS: ABG BASE EXCESS -1.7 mmol/L (-2.0-2.0); ARTERIAL BLOOD GAS PH 7.351 (7.35-7.45)
--- NOTE | 2020-10-16 15:30 | NUR ---
PT SUPINED, ET TUBE INTACT AND PT TOLERATED WELL.
--- NOTE | 2020-10-16 15:45 | NUR ---
PT UNPRONED AT THIS TIME.
--- NOTE | 2020-10-16 16:00 | NUR ---
AFTER UNPRONING PT WHEN REMOVING DUODERM FROM CHIN THE DUODERM PEELED A LAYER OF SKIN OFF OF HIS CHIN.
[2020-10-16 17:14] LABS: ABG BASE EXCESS -0.6 mmol/L (-2.0-2.0); ARTERIAL BLOOD GAS PH 7.36 (7.35-7.45)
--- NOTE | 2020-10-16 20:00 | NUR ---
PT RESTING IN BED WITH EYES CLOSED. ENDOTUBE PATENT, TIES SECURE. VENT SETTINGS VERIFIED AND FUNCTIONING WITHOUT DIFFICULTY. OGT PATENT, PLACEMENT VERIFIED VIA AIR BOLUS AND FLUSHED WITH EASE. TF KEYA WELL. RIGHT IJ MLC AND RIGHT ART LINE PATENT, DRESSINGS DRY AND INTACT. FLOYD PATENT FOR DARK DIMPLE URINE. ISOLATION PRECAUTIONS MAINTAINED.
--- NOTE | 2020-10-16 23:00 | NUR ---
PT PRONED AND KEYA WELL.
[2020-10-17] VITALS (12 sets, daily range): BP systolic 122–168; BP diastolic 63–83
[2020-10-17 01:41] LABS: ABG BASE EXCESS 1.1 mmol/L (-2.0-2.0); ARTERIAL BLOOD GAS PH 7.383 (7.35-7.45)
[2020-10-17 06:03] LABS: ALBUMIN 2.1 gm/dl (3.1-4.5); ALKALINE PHOSPHATASE 66 U/L (45-117); BUN 9 mg/dl (7-24); CHLORIDE 101 mmol/L (98-107); CREATININE 0.42 mg/dL (0.70-1.30); LDH 354 U/L (87-241); POTASSIUM 3.3 mmol/L (3.5-5.1); SGOT/AST 26 IU/L (3-35); SGPT/ALT 68 U/L (12-78); SODIUM 136 mmol/L (136-145); TOTAL PROTEIN 6.4 gm/dL (6.4-8.2)
--- NOTE | 2020-10-17 06:20 | NUR ---
Unable to assess patient's chin at this time due to patient in prone position. Leeanne VAZQUEZ caring for patient states that patient will be unprone at 1500 today.
[2020-10-17 06:37] LABS: BASO % 0.1 % (0.0-1.0); EOS % 0.4 % (1.0-4.0); HEMATOCRIT 27.8 % (42.0-52.0); LYMPH # 0.4 10*3/uL (1.3-4.4); LYMPH % 5.2 % (27.0-41.0); MEAN CELL VOLUME 95.2 fl (80.0-94.0); MEAN CORPUSCULAR HGB 31.5 pg (27.0-31.0); MEAN CORPUSCULAR HGB CONC 33.1 g/dl (33.0-37.0); MEAN PLATELET VOLUME 10.2 fl (9.6-12.3); MONO # 0.2 10*3/uL (0.1-1.0); MONO % 2.5 % (3.0-9.0); NEUT # 6.4 10*3/uL (2.3-7.9); NEUT % 89.7 % (47.0-73.0); PLATELET COUNT AUTOMATED 153 10*3/uL (130-400); RED BLOOD COUNT 2.92 10*6/uL (4.50-5.90); RED CELL DISTRI WIDTH 15.3 % (0-14.5); WHITE BLOOD COUNT 7.1 10*3/uL (4.8-10.8)
--- NOTE | 2020-10-17 07:00 | NUR ---
VERSED GIVEN X2 THROUGHOUT SHIFT HAS BEEN EFFECTIVE.
[2020-10-17 07:06] LABS: ABG BASE EXCESS 2.2 mmol/L (-2.0-2.0); ARTERIAL BLOOD GAS PH 7.432 (7.35-7.45)
--- NOTE | 2020-10-17 09:00 | NUR ---
Patient is intubated and in COVID isolation precautions. CM will continue to follow for any discharge planning needs.
[2020-10-17 14:14] LABS: ABG BASE EXCESS 1.7 mmol/L (-2.0-2.0); ARTERIAL BLOOD GAS PH 7.41 (7.35-7.45)
--- NOTE | 2020-10-17 15:40 | NUR ---
PT UNPRONED AT THIS TIME. TOLERATED WELL.
[2020-10-17 17:40] LABS: ALBUMIN 2.6 gm/dl (3.1-4.5); ALKALINE PHOSPHATASE 68 U/L (45-117); BUN 12 mg/dl (7-24); CHLORIDE 102 mmol/L (98-107); CREATININE 0.59 mg/dL (0.70-1.30); POTASSIUM 3.6 mmol/L (3.5-5.1); SGOT/AST 24 IU/L (3-35); SGPT/ALT 65 U/L (12-78); SODIUM 138 mmol/L (136-145)
--- NOTE | 2020-10-17 18:57 | NUR ---
DR ACOSTA NOTIFIED OF CXR AND LAB RESULTS.
[2020-10-17 19:51] LABS: ABG BASE EXCESS 2.7 mmol/L (-2.0-2.0); ARTERIAL BLOOD GAS PH 7.376 (7.35-7.45)
[2020-10-17 21:40] LABS: ABG BASE EXCESS 2.6 mmol/L (-2.0-2.0); ARTERIAL BLOOD GAS PH 7.367 (7.35-7.45)
--- NOTE | 2020-10-17 22:00 | NUR ---
called with ABG reuslts. No changes. ABG in the AM
[2020-10-18] VITALS (20 sets, daily range): BP systolic 98–185; BP diastolic 54–89
--- NOTE | 2020-10-18 | NUR ---
Patient stable on vent, no signs of distress. Tolerating diprivan and nimbex with no issues. Monitoring.
--- NOTE | 2020-10-18 02:24 | NUR ---
24 HR chart check completed.
[2020-10-18 06:00] LABS: ALBUMIN 2.4 gm/dl (3.1-4.5); ALKALINE PHOSPHATASE 67 U/L (45-117); BUN 19 mg/dl (7-24); LDH 326 U/L (87-241); SGOT/AST 28 IU/L (3-35); SGPT/ALT 60 U/L (12-78); TOTAL PROTEIN 6.5 gm/dL (6.4-8.2); TRIGLYCERIDES 405 mg/dl (<150)
[2020-10-18 06:10] LABS: CHLORIDE 104 mmol/L (98-107); SODIUM 139 mmol/L (136-145)
[2020-10-18 06:15] LABS: BASO % 0.3 % (0.0-1.0); EOS % 0.3 % (1.0-4.0); HEMATOCRIT 28.1 % (42.0-52.0); LYMPH # 0.6 10*3/uL (1.3-4.4); LYMPH % 7.2 % (27.0-41.0); MEAN CELL VOLUME 96.2 fl (80.0-94.0); MEAN CORPUSCULAR HGB 30.5 pg (27.0-31.0); MEAN CORPUSCULAR HGB CONC 31.7 g/dl (33.0-37.0); MEAN PLATELET VOLUME 9.9 fl (9.6-12.3); MONO # 0.3 10*3/uL (0.1-1.0); MONO % 3.6 % (3.0-9.0); NEUT # 6.7 10*3/uL (2.3-7.9); PLATELET COUNT AUTOMATED 157 10*3/uL (130-400); POTASSIUM 4.7 mmol/L (3.5-5.1); RED BLOOD COUNT 2.92 10*6/uL (4.50-5.90); RED CELL DISTRI WIDTH 15.4 % (0-14.5); WHITE BLOOD COUNT 7.8 10*3/uL (4.8-10.8)
--- NOTE | 2020-10-18 06:38 | NUR ---
Critical lab call to Dr. Lawrence, awaiting orders.
[2020-10-18 07:07] LABS: ABG BASE EXCESS 4.1 mmol/L (-2.0-2.0); ARTERIAL BLOOD GAS PH 7.386 (7.35-7.45)
--- NOTE | 2020-10-18 07:42 | NUR ---
Shift chart check completed.
--- NOTE | 2020-10-18 08:30 | NUR ---
AM ASSESSMENT DONE - PATIENT SEDATED ON DIPRIVAN AND NIMBEX.. ETT SECURE W/ SM AMT THICK YELLOW/WHITE SPUTUM.. CHIN WOUND RED/PINK IN COLOR..RIJ-MLC SECURE & PATENT TO ALL PORTS. JARRED & SUTURES REMAIN INTACT TO TOP OF HEAD. NO DRAINAGE OR REDNESS NOTED. RT WRIST ARTLINE SECURE& PaTENT/ DRESSING, TUBING, HEP BAG CHANGED. ZERO'D & CALIBRATED WITH GOOD HEMODYNAMIC RESPONSE. OGT PLACEMENT CHECKED WITH AIR BOLUS THEN IRRIGATED WITH FREE WATER.. ABD SOFT W/ NORMOACTIVE BS. FLOYD PATENT FOR DIMPLE URINE. DANYELLE/SCD ON
--- NOTE | 2020-10-18 11:30 | NUR ---
TYLENOL GIVEN FOR ELEVATED TEMP, IV LOPRESSOR FOR HYPERTENSION SBP 160'S& TACHYCARDIA RATE 130'S AND VERSED FOR GENERALIZED P[OSSIBLE ANXIETY.
[2020-10-18 13:29] LABS: ABG BASE EXCESS 3.9 mmol/L (-2.0-2.0); ARTERIAL BLOOD GAS PH 7.381 (7.35-7.45)
--- NOTE | 2020-10-18 13:30 | NUR ---
VERSED GIVEN FOR BLOOD PRESSURE CONTINUING TO CLIMB. IMPROVEMENT POST VERSED.
--- NOTE | 2020-10-18 16:34 | NUR ---
VERSED GIVEN FOR INCREASED BP & FEET MOVING
--- NOTE | 2020-10-18 17:21 | NUR ---
REPOSITIONED AND CALMER - DIPRIVAN AT 50mcg & NIMBEX AT 2mcg & TUBING FOR BOTH CHANGED
--- NOTE | 2020-10-18 19:51 | NUR ---
Patients heart rate up to 130 patient possibly in pain, norco given, will monitor and reassess.
--- NOTE | 2020-10-18 20:30 | NUR ---
[place] not effective, patients heart rate still elevated, will notify doctor.
--- NOTE | 2020-10-18 20:34 | NUR ---
Patients heart rate 131, bp 146/78, Notified resident, new order received for lopressor. Was given HR came down to 96, blood pressure 119/68. Monitoriing.
--- NOTE | 2020-10-18 23:49 | NUR ---
24 HR chart check completed.
[2020-10-19] VITALS (21 sets, daily range): BP systolic 133–210; BP diastolic 63–92
--- NOTE | 2020-10-19 01:49 | NUR ---
Patients heart rate up to 130, blood pressure 160-180/80-90. Versed and morphine given, effective almost immediately. HR 106-109, blood pressure 116/58. Will continue to monitor.
--- NOTE | 2020-10-19 04:56 | NUR ---
Patient ab distended, patient has not had a full bowel movement in >4days. Milk of mag given to help it along.
[2020-10-19 06:13] LABS: MEAN CELL VOLUME 97.3 fl (80.0-94.0); MEAN CORPUSCULAR HGB 31.9 pg (27.0-31.0); MEAN CORPUSCULAR HGB CONC 32.8 g/dl (33.0-37.0); MEAN PLATELET VOLUME 9.9 fl (9.6-12.3); NUCLEATED RED BLOOD CELL 0.3 % (0.0-0.0); PLATELET COUNT AUTOMATED 161 10*3/uL (130-400); RED BLOOD COUNT 2.57 10*6/uL (4.50-5.90); RED CELL DISTRI WIDTH 15.2 % (0-14.5); WHITE BLOOD COUNT 8.9 10*3/uL (4.8-10.8)
[2020-10-19 06:18] LABS: ALBUMIN 2.5 gm/dl (3.1-4.5); ALKALINE PHOSPHATASE 68 U/L (45-117); BUN 23 mg/dl (7-24); CHLORIDE 103 mmol/L (98-107); CREATININE 0.48 mg/dL (0.70-1.30); SGOT/AST 35 IU/L (3-35); SGPT/ALT 58 U/L (12-78); SODIUM 140 mmol/L (136-145); TOTAL PROTEIN 6.2 gm/dL (6.4-8.2)
[2020-10-19 06:21] LABS: POTASSIUM 3.6 mmol/L (3.5-5.1)
[2020-10-19 07:35] LABS: ABG BASE EXCESS 8.9 mmol/L (-2.0-2.0); ARTERIAL BLOOD GAS PH 7.439 (7.35-7.45)
[2020-10-19 08:53] LABS: PLATELET SUFFICIENCY NORMAL (NORMAL); TOTAL CELLS COUNTED 100 #CELLS
[2020-10-19 08:54] LABS: BURR CELLS MODERATE; SCHISTOCYTES FEW
[2020-10-19 14:23] LABS: BUN 19 mg/dl (7-24); CHLORIDE 104 mmol/L (98-107); CREATININE 0.51 mg/dL (0.70-1.30); SODIUM 138 mmol/L (136-145)
[2020-10-19 14:24] LABS: ABG BASE EXCESS 6.3 mmol/L (-2.0-2.0); ARTERIAL BLOOD GAS PH 7.398 (7.35-7.45)
[2020-10-19 14:25] LABS: POTASSIUM 4.6 mmol/L (3.5-5.1)
[2020-10-19 20:27] LABS: ABG BASE EXCESS 8.8 mmol/L (-2.0-2.0); ARTERIAL BLOOD GAS PH 7.392 (7.35-7.45)
[2020-10-20] VITALS (25 sets, daily range): BP systolic 110–218; BP diastolic 56–104
--- NOTE | 2020-10-20 05:42 | NUR ---
PT' HR UP TO 143, VERSED DRIP INCREASED TO 7MR/HR, AND AFTER 15MINS 7.3MG/HR, WILL MONITOR
--- NOTE | 2020-10-20 05:53 | NUR ---
DR LOONEY NOTIFIED OF BP AND HR ORDERS TO FOLLOW
[2020-10-20 06:14] LABS: ALBUMIN 2.9 gm/dl (3.1-4.5); BUN 23 mg/dl (7-24); CHLORIDE 104 mmol/L (98-107); CREATININE 0.46 mg/dL (0.70-1.30); HEMATOCRIT 27.6 % (42.0-52.0); MEAN CELL VOLUME 98.6 fl (80.0-94.0); MEAN CORPUSCULAR HGB 31.1 pg (27.0-31.0); MEAN CORPUSCULAR HGB CONC 31.5 g/dl (33.0-37.0); MEAN PLATELET VOLUME 10.2 fl (9.6-12.3); NUCLEATED RED BLOOD CELL 0.1 10*3/uL (0.0-0.0); NUCLEATED RED BLOOD CELL 0.7 % (0.0-0.0); PLATELET COUNT AUTOMATED 171 10*3/uL (130-400); RED CELL DISTRI WIDTH 15.6 % (0-14.5); SGOT/AST 36 IU/L (3-35); SGPT/ALT 64 U/L (12-78); SODIUM 141 mmol/L (136-145); WHITE BLOOD COUNT 9.2 10*3/uL (4.8-10.8)
[2020-10-20 06:18] LABS: ALKALINE PHOSPHATASE 74 U/L (45-117); TOTAL PROTEIN 6.6 gm/dL (6.4-8.2); TRIGLYCERIDES 641 mg/dl (<150)
[2020-10-20 06:28] LABS: POTASSIUM 3.6 mmol/L (3.5-5.1)
[2020-10-20 07:03] LABS: PLATELET SUFFICIENCY NORMAL (NORMAL); TOTAL CELLS COUNTED 100 #CELLS
[2020-10-20 07:05] LABS: BURR CELLS FEW
[2020-10-20 07:37] LABS: ABG BASE EXCESS 8.3 mmol/L (-2.0-2.0); ARTERIAL BLOOD GAS PH 7.377 (7.35-7.45)
--- NOTE | 2020-10-20 08:15 | NUR ---
PT MEDICATED WITH TYLENOL 650MG VIA OGT DUE TO TEMP OF 100.6 AND HR INCREASING TO 130'S.
--- NOTE | 2020-10-20 13:49 | NUR ---
O2 DECREASED TO 45%. ABG IN 2 HOURS, PER DR. ACOSTA
[2020-10-20 16:05] LABS: ABG BASE EXCESS 8.2 mmol/L (-2.0-2.0); ARTERIAL BLOOD GAS PH 7.426 (7.35-7.45)
--- NOTE | 2020-10-20 17:54 | NUR ---
PT'S HEART RATE UP TO 130'S CONTINUOSLY AGAIN. SBP UP TO 160'S. DR HOSKINS NOTIFIED AND ORDER FOR IV LOPRESSOR 5MG TO BE GIVEN.
--- NOTE | 2020-10-20 20:00 | NUR ---
SETTLES SOMEWHAT AFTER MS, BECOMES AGITATED WITH TURN AND REPOSITION,
--- NOTE | 2020-10-20 20:30 | NUR ---
TEMP UP TO 101.1 RECTAL, TYLENOL SUPPOSITORY GIVEN
--- NOTE | 2020-10-20 21:10 | NUR ---
PT THRASHING HEAD SIDE TO SIDE, AFTER SUPPOSITORY, NIMBEX TITRATED UP TO 3.5MCG/KG/MIN, ATIVAN TITRATED UP TO 8MG/HR
--- NOTE | 2020-10-20 21:39 | NUR ---
NIMBEX INCREASED TO 4MICS/KG/MIN, ATIVAN INCREASED TO 8MG//HR FOR RESTLENESS
--- NOTE | 2020-10-20 22:31 | NUR ---
DR ACOSTA NOTIFIED OF INCREASED HR AND BP, AND INCREASE IN SEDATION AND PARALYTIC, CLONIDINE GIVEN PER ORDER
--- NOTE | 2020-10-20 23:03 | NUR ---
CLONIDINE GIVEN NOW FOR BP 200/101
[2020-10-21] VITALS (25 sets, daily range): BP systolic 105–186; BP diastolic 52–100
--- NOTE | 2020-10-21 03:13 | NUR ---
BP' IN 160-170 SYSTOLIC RANGE, CLONIDINE 0.1MG GIVEN PER ORDER
[2020-10-21 06:28] LABS: ALBUMIN 2.9 gm/dl (3.1-4.5); BUN 26 mg/dl (7-24); CHLORIDE 108 mmol/L (98-107); POTASSIUM 3.9 mmol/L (3.5-5.1); SGOT/AST 37 IU/L (3-35); SGPT/ALT 72 U/L (12-78); SODIUM 145 mmol/L (136-145); TOTAL PROTEIN 6.5 gm/dL (6.4-8.2)
[2020-10-21 06:34] LABS: ALKALINE PHOSPHATASE 80 U/L (45-117); CREATININE 0.61 mg/dL (0.70-1.30); PREALBUMIN 23 mg/dl (20-40); TRIGLYCERIDES 619 mg/dl (<150)
[2020-10-21 07:31] LABS: HEMATOCRIT 26.6 % (42.0-52.0); MEAN CORPUSCULAR HGB 30.7 pg (27.0-31.0); MEAN CORPUSCULAR HGB CONC 30.5 g/dl (33.0-37.0); MEAN PLATELET VOLUME 10.3 fl (9.6-12.3); NUCLEATED RED BLOOD CELL 0.1 10*3/uL (0.0-0.0); NUCLEATED RED BLOOD CELL 1.4 % (0.0-0.0); PLATELET COUNT AUTOMATED 182 10*3/uL (130-400); RED BLOOD COUNT 2.64 10*6/uL (4.50-5.90); RED CELL DISTRI WIDTH 15.9 % (0-14.5); WHITE BLOOD COUNT 7.4 10*3/uL (4.8-10.8)
[2020-10-21 07:35] LABS: MEAN CELL VOLUME 100.8 fl (80.0-94.0)
[2020-10-21 08:46] LABS: ARTERIAL BLOOD GAS PH 7.414 (7.35-7.45)
--- NOTE | 2020-10-21 09:00 | NUR ---
Patient is intubated and in COVID isolation precautions. CM will continue to follow for any discharge planning needs.
[2020-10-21 10:15] LABS: TOTAL CELLS COUNTED 100 #CELLS
[2020-10-21 10:16] LABS: PLATELET SUFFICIENCY NORMAL (NORMAL)
--- NOTE | 2020-10-21 11:52 | NUR ---
DR ACOSTA IN SEEING PATIENT AT THIS TIME
--- NOTE | 2020-10-21 12:34 | NUR ---
Nutritional Support Services Note: Pt remains on vent. Pulmocare via OGT increased to 60cc/hr. TF is meeting pts needs. No other Nutrition intervention needed at this time. Will follow. Rosalina Huang Rdn Ld
--- NOTE | 2020-10-21 12:49 | NUR ---
ET TUBE ADVANCED TO [address] ACOSTA ORDERS, O2 DECREASED TO 40%.
--- NOTE | 2020-10-21 15:00 | NUR ---
CELL PHONE PICKED UP PER REQUEST OF THE PATIENTS SISTER TEMI. PHONE WAS PICKED UP BY DELILAH SARABIA WHO WORKS WITH [employer] HERE IN HOSPITAL. [employer] IS COVID POSITIVE WELL AND CANNOT LEAVE HER QUARANTINE
[2020-10-21 16:39] LABS: ARTERIAL BLOOD GAS PH 7.368 (7.35-7.45)
--- NOTE | 2020-10-21 16:54 | NUR ---
ORDER FROM DR ACOSTA TO ADVANCE ET TUBE 2CM AND TO KEEP O2 40%, ADDED ORDER FOR MUCOMYST WELL.
--- NOTE | 2020-10-21 17:20 | NUR ---
ET TUBE ADVANCED TWO CM, NOW AT 29 OUTER LIP.
[2020-10-21 20:11] LABS: ABG BASE EXCESS 8.8 mmol/L (-2.0-2.0); ARTERIAL BLOOD GAS PH 7.488 (7.35-7.45)
--- NOTE | 2020-10-21 20:41 | NUR ---
PT. VERY AGGITATED, LEGS MOVING AND EYES WIDE OPEN. ART LINE IN RIGHT RADIAL INTACT. ART LINE LEVELED, ZEROED AND FLUSHED. RIJ MLC INTACT, ALL PORTS PATENT. FLOYD CATHETER DRAINING A CLOUDY YELLOW URINE. PULMOCARE TF ORALLY WITH NO RESIDUAL NOTED. PLACEMENT CONFIRMED WITH AIR BOLUS. LUNGS DIMINISHED BILAT, PULSE OX 85-98%. DESATS WHEN COUGHING. SUCTIONED FOR SCANT AMT OF MUCOUS VIA ENDO AND MODERATE AMTS OF SECRETIONS ORALLY. ORAL MOUTH CARE GIVEN. ABDOMEN FIRMLY DISTENDED AND NORMO. NO PERIPHERAL EDEMA NOTED. TALKED WITH DR CAOSTA REGARDING PATIENTS AGGITATION. ORDERS RECEIVED. MARION STONER RN
--- NOTE | 2020-10-21 23:32 | NUR ---
CATAPRESS AND HALDOL GIVEN ORDERED FOR B/P OF . WILL CONTINUE TO MONITOR.
--- NOTE | 2020-10-21 23:54 | NUR ---
PT. GIVEN TYLENOL ORDERED FOR TEMP OF 101.3. WILL CONTINUE TO MONITOR.
[2020-10-22] VITALS (24 sets, daily range): BP systolic 116–157; BP diastolic 64–88
--- NOTE | 2020-10-22 01:44 | NUR ---
PT'S CURRENT B/P 124/78 AND TEMP 100.8, BOTH CATAPRES AND TYLENOL EFFECTIVE. MARION STONER RN
[2020-10-22 05:55] LABS: ALBUMIN 2.9 gm/dl (3.1-4.5); ALKALINE PHOSPHATASE 79 U/L (45-117); BUN 28 mg/dl (7-24); CHLORIDE 107 mmol/L (98-107); CPK 44 U/L (39-308); CREATININE 0.58 mg/dL (0.70-1.30); LDH 380 U/L (87-241); POTASSIUM 3.9 mmol/L (3.5-5.1); SGOT/AST 28 IU/L (3-35); SGPT/ALT 65 U/L (12-78); SODIUM 144 mmol/L (136-145); TOTAL PROTEIN 6.6 gm/dL (6.4-8.2); TRIGLYCERIDES 500 mg/dl (<150)
[2020-10-22 06:18] LABS: HEMATOCRIT 24.8 % (42.0-52.0); MEAN CELL VOLUME 101.6 fl (80.0-94.0); MEAN CORPUSCULAR HGB 31.6 pg (27.0-31.0); MEAN PLATELET VOLUME 10.4 fl (9.6-12.3); NUCLEATED RED BLOOD CELL 0.1 10*3/uL (0.0-0.0); NUCLEATED RED BLOOD CELL 1.2 % (0.0-0.0); PLATELET COUNT AUTOMATED 160 10*3/uL (130-400); RED BLOOD COUNT 2.44 10*6/uL (4.50-5.90); RED CELL DISTRI WIDTH 15.9 % (0-14.5); WHITE BLOOD COUNT 7.5 10*3/uL (4.8-10.8)
[2020-10-22 07:21] LABS: TOTAL CELLS COUNTED 100 #CELLS
[2020-10-22 07:23] LABS: PLATELET SUFFICIENCY NORMAL (NORMAL); POLYCHROMASIA SLIGHT; SCHISTOCYTES FEW
[2020-10-22 07:49] LABS: ARTERIAL BLOOD GAS PH 7.397 (7.35-7.45)
--- NOTE | 2020-10-22 11:30 | NUR ---
DR ACOSTA IN TO SEE PATIENT, CARE DISCUSSED WITH
--- NOTE | 2020-10-22 13:00 | NUR ---
DR VALENZUELA IN TO SEE PATIENT, ORDERS OBTAINED
--- NOTE | 2020-10-22 19:49 | NUR ---
DR ACOSTA CALLS IN. CONDITION DISCUSSED.
[2020-10-22 20:16] LABS: ABG BASE EXCESS 5.6 mmol/L (-2.0-2.0); ARTERIAL BLOOD GAS PH 7.37 (7.35-7.45)
[2020-10-23] VITALS (23 sets, daily range): BP systolic 108–181; BP diastolic 58–96
[2020-10-23 06:07] LABS: ALBUMIN 3.1 gm/dl (3.1-4.5); BUN 27 mg/dl (7-24); CHLORIDE 104 mmol/L (98-107); CREATININE 0.56 mg/dL (0.70-1.30); LDH 316 U/L (87-241); POTASSIUM 4.1 mmol/L (3.5-5.1); SGOT/AST 18 IU/L (3-35); SGPT/ALT 57 U/L (12-78); SODIUM 141 mmol/L (136-145); TOTAL PROTEIN 6.6 gm/dL (6.4-8.2)
[2020-10-23 06:08] LABS: ALKALINE PHOSPHATASE 85 U/L (45-117)
[2020-10-23 06:14] LABS: CPK 27 U/L (39-308)
[2020-10-23 06:25] LABS: HEMATOCRIT 39.5 % (42.0-52.0); MEAN CELL VOLUME 99.2 fl (80.0-94.0); MEAN CORPUSCULAR HGB 29.9 pg (27.0-31.0); MEAN CORPUSCULAR HGB CONC 30.1 g/dl (33.0-37.0); MEAN PLATELET VOLUME 10.7 fl (9.6-12.3); NUCLEATED RED BLOOD CELL 0.1 10*3/uL (0.0-0.0); NUCLEATED RED BLOOD CELL 0.9 % (0.0-0.0); PLATELET COUNT AUTOMATED 122 10*3/uL (130-400); RED BLOOD COUNT 3.98 10*6/uL (4.50-5.90); RED CELL DISTRI WIDTH 15.7 % (0-14.5); WHITE BLOOD COUNT 6.5 10*3/uL (4.8-10.8)
[2020-10-23 07:09] LABS: TOTAL CELLS COUNTED 100 #CELLS
[2020-10-23 07:10] LABS: PLATELET SUFFICIENCY LOW (NORMAL); POLYCHROMASIA SLIGHT
[2020-10-23 07:39] LABS: ABG BASE EXCESS 8.3 mmol/L (-2.0-2.0); ARTERIAL BLOOD GAS PH 7.428 (7.35-7.45)
[2020-10-23 09:25] LABS: BASO % 0.1 % (0.0-1.0); EOS % 0.1 % (1.0-4.0); HEMATOCRIT 23.1 % (42.0-52.0); LYMPH # 0.5 10*3/uL (1.3-4.4); LYMPH % 5.3 % (27.0-41.0); MEAN CORPUSCULAR HGB 30.7 pg (27.0-31.0); MEAN CORPUSCULAR HGB CONC 30.7 g/dl (33.0-37.0); MEAN PLATELET VOLUME 10.6 fl (9.6-12.3); MONO # 0.3 10*3/uL (0.1-1.0); MONO % 3.3 % (3.0-9.0); NEUT # 8.2 10*3/uL (2.3-7.9); NEUT % 89.1 % (47.0-73.0); NUCLEATED RED BLOOD CELL 0.1 10*3/uL (0.0-0.0); NUCLEATED RED BLOOD CELL 0.8 % (0.0-0.0); PLATELET COUNT AUTOMATED 145 10*3/uL (130-400); RED BLOOD COUNT 2.31 10*6/uL (4.50-5.90); RED CELL DISTRI WIDTH 15.9 % (0-14.5); WHITE BLOOD COUNT 9.2 10*3/uL (4.8-10.8)
--- NOTE | 2020-10-23 12:57 | NUR ---
pt had bronchoscopy done. tolerated well.
[2020-10-23 15:20] LABS: HEMATOCRIT 23.7 % (42.0-52.0); MEAN CELL VOLUME 99.6 fl (80.0-94.0); MEAN CORPUSCULAR HGB 30.7 pg (27.0-31.0); MEAN CORPUSCULAR HGB CONC 30.8 g/dl (33.0-37.0); MEAN PLATELET VOLUME 10.2 fl (9.6-12.3); NUCLEATED RED BLOOD CELL 0.1 10*3/uL (0.0-0.0); NUCLEATED RED BLOOD CELL 0.4 % (0.0-0.0); PLATELET COUNT AUTOMATED 150 10*3/uL (130-400); RED BLOOD COUNT 2.38 10*6/uL (4.50-5.90); WHITE BLOOD COUNT 11.3 10*3/uL (4.8-10.8)
[2020-10-23 15:31] LABS: ABG BASE EXCESS 8.8 mmol/L (-2.0-2.0); ARTERIAL BLOOD GAS PH 7.417 (7.35-7.45)
[2020-10-23 15:37] LABS: PLATELET SUFFICIENCY NORMAL (NORMAL); POLYCHROMASIA SLIGHT; TOTAL CELLS COUNTED 100 #CELLS
[2020-10-24] VITALS (25 sets, daily range): BP systolic 98–194; BP diastolic 48–93
--- NOTE | 2020-10-24 03:30 | NUR ---
PATIENT COUGHING AND HAS HIS EYES OPENED PATIENT IS BREATHING AT 34 BREATHS A MIN BP IS UP AND HEART RATE INCREASED TO 130'S NIMBEX INCREASED AT THIS TIME. HALDOL GIVEN.
[2020-10-24 06:12] LABS: HEMATOCRIT 24.2 % (42.0-52.0); MEAN CELL VOLUME 101.7 fl (80.0-94.0); MEAN CORPUSCULAR HGB 31.5 pg (27.0-31.0); MEAN PLATELET VOLUME 10.8 fl (9.6-12.3); NUCLEATED RED BLOOD CELL 0.1 10*3/uL (0.0-0.0); NUCLEATED RED BLOOD CELL 1.1 % (0.0-0.0); PLATELET COUNT AUTOMATED 181 10*3/uL (130-400); RED BLOOD COUNT 2.38 10*6/uL (4.50-5.90); RED CELL DISTRI WIDTH 16.1 % (0-14.5); WHITE BLOOD COUNT 11.4 10*3/uL (4.8-10.8)
[2020-10-24 06:15] LABS: CHLORIDE 104 mmol/L (98-107); POTASSIUM 4.3 mmol/L (3.5-5.1); SODIUM 140 mmol/L (136-145)
[2020-10-24 06:22] LABS: ALBUMIN 2.7 gm/dl (3.1-4.5); ALKALINE PHOSPHATASE 99 U/L (45-117); BUN 24 mg/dl (7-24); CREATININE 0.56 mg/dL (0.70-1.30); LDH 324 U/L (87-241); SGOT/AST 20 IU/L (3-35); SGPT/ALT 54 U/L (12-78); TOTAL PROTEIN 6.4 gm/dL (6.4-8.2)
[2020-10-24 06:24] LABS: CPK 17 U/L (39-308)
[2020-10-24 07:36] LABS: ABG BASE EXCESS 7.3 mmol/L (-2.0-2.0); ARTERIAL BLOOD GAS PH 7.347 (7.35-7.45)
[2020-10-24 07:43] LABS: TOTAL CELLS COUNTED 100 #CELLS
[2020-10-24 07:44] LABS: PLATELET SUFFICIENCY NORMAL (NORMAL); POLYCHROMASIA SLIGHT
[2020-10-24 11:11] LABS: ACID FAST SPEC PROCESSING Concentration (.)
--- NOTE | 2020-10-24 11:55 | NUR ---
CATAPRESS SLIGHTLY EFFECTIVE
--- NOTE | 2020-10-24 14:00 | NUR ---
VERSED AND NIMBEX DRIPS TITRATED OFF MORPHINE CONTINUES AT 1MG, AWAITING NEW NITRATOR OPERATOR DRIP HR CONTINUES TO BE 115-125 BP 124/64 REPOSITIONED
--- NOTE | 2020-10-24 17:08 | NUR ---
DR ACOSTA UPDATED ON VS PT AWAKE, NODDING HEAD, FOLLOWING COMMANDS APPROPIATELY ALL DRIPS EXCEPT MORPHINE DC'D
--- NOTE | 2020-10-24 17:29 | NUR ---
VERSED FOR SEDATION
--- NOTE | 2020-10-24 19:50 | NUR ---
HR 150'S, SBP 70'2,, RR 33, TEMP 101.7, DR ACOSTA NOTIFIED ORDERS PER CHART
--- NOTE | 2020-10-24 23:08 | NUR ---
VERSED 5MG Q1 EFFECTIVE FOR A LITTLE WHILE, PT GETS MORE AGITATED WITH HANDS ON CARE
[2020-10-25] VITALS (25 sets, daily range): BP systolic 92–185; BP diastolic 44–90
--- NOTE | 2020-10-25 04:00 | NUR ---
AFTER AM CARE PT OGT CLOGGED, NEW OGT INSERTED, PCXR OBTAINED FOR PLACEMENT PER POLICY, TUBE FEED ON HOLD FOR NOW
--- NOTE | 2020-10-25 05:50 | NUR ---
PT'S TEMP DOWN WITH 99.7 RECTAL WITH COOLING BLANKET,
[2020-10-25 05:58] LABS: ALBUMIN 2.5 gm/dl (3.1-4.5); BUN 25 mg/dl (7-24); CHLORIDE 108 mmol/L (98-107); CREATININE 0.57 mg/dL (0.70-1.30); POTASSIUM 3.6 mmol/L (3.5-5.1); SGOT/AST 27 IU/L (3-35); SGPT/ALT 60 U/L (12-78); SODIUM 146 mmol/L (136-145); TOTAL PROTEIN 6.1 gm/dL (6.4-8.2)
[2020-10-25 05:59] LABS: ALKALINE PHOSPHATASE 106 U/L (45-117); HEMATOCRIT 23.1 % (42.0-52.0); MEAN CELL VOLUME 99.6 fl (80.0-94.0); MEAN CORPUSCULAR HGB CONC 31.2 g/dl (33.0-37.0); NUCLEATED RED BLOOD CELL 0.2 10*3/uL (0.0-0.0); NUCLEATED RED BLOOD CELL 1.7 % (0.0-0.0); PLATELET COUNT AUTOMATED 204 10*3/uL (130-400); RED BLOOD COUNT 2.32 10*6/uL (4.50-5.90); RED CELL DISTRI WIDTH 16.1 % (0-14.5); WHITE BLOOD COUNT 11.4 10*3/uL (4.8-10.8)
--- NOTE | 2020-10-25 06:53 | NUR ---
still awaiting pcxr for og placement, versed hit and miss for anxiety, cooling blanket effective for temp
[2020-10-25 07:35] LABS: ABG BASE EXCESS 8.9 mmol/L (-2.0-2.0); ARTERIAL BLOOD GAS PH 7.456 (7.35-7.45)
--- NOTE | 2020-10-25 07:35 | NUR ---
VERSED FOR AGITATION/ANXIETY. OGT PLACEMENT VERIFIED BY AIR BOLUS/AUSCULTATION OVER EPIGASTRIC AREA.
[2020-10-25 07:39] LABS: PLATELET SUFFICIENCY NORMAL (NORMAL); POLYCHROMASIA SLIGHT; TOTAL CELLS COUNTED 100 #CELLS
--- NOTE | 2020-10-25 08:30 | NUR ---
MEDICATED WITH VERSED FOR AGITATION, COUGHING AGAINST THE VENT.
--- NOTE | 2020-10-25 11:07 | NUR ---
DR CLARKE WAS UPDATED ON PT CONDITION, INABILITY TO OBTAIN BLOOD FROM PICC LINE, AND THAT PT CONTINUES TO BE AGITATED, REQUIRING VERSED Q1H. HEPARIN WAS INSTILLED IN PICC LINE, WHICH FLUSHES EASILY BUT UNABLE TO OBTAIN BLOOD SAMPLE. DR CLARKE TO VISIT.
--- NOTE | 2020-10-25 11:39 | NUR ---
VERSED CONTINUES TO BE GIVEN HOURLY FOR AGITATION AND COUGHING AGAINST THE VENT. EFFECTIVE IMMEDIATELY BUT DOES NOT HOLD SEDATION THE WHOLE HOUR.
--- NOTE | 2020-10-25 11:49 | NUR ---
DR CLARKE VISITS.
--- NOTE | 2020-10-25 11:54 | NUR ---
MYSELF, KRYSTAL Ochoa, AND DR CLARKE ALL ATTEMPTED AND WERE UNABLE TO OBTAIN BLOOD SAMPLE FOR BLOOD CULTURE. DR CLARKE ORDERED TO
--- NOTE | 2020-10-25 12:45 | NUR ---
CONDITION AND PLAN OF CARE DISCUSSED WITH DR ACOSTA....ORDERS RECEIVED.
--- NOTE | 2020-10-25 12:54 | NUR ---
DISCUSSED RESUMPTION OF HOME MEDICATIONS WITH DR ACOSTA AND CONVEYED THIS TO DR CLARKE. HE WILL REORDER MEDICATIONS.
--- NOTE | 2020-10-25 14:15 | NUR ---
IV VERSED GTT NOT EFFECTIVE AT THIS TIME AND PULSE OX DROPPING TO MID 80'S. KRYSTAL Ochoa SPOKE WITH DR ACOSTA AND HE SAID TO CONTINUE TO ALSO USE IV Q1H PRN DOSES WELL. MEDICATED WITH VERSED AT 1400... WAS EFFECTIVE IMMEDIATELY BUT ONLY FOR ABOUT 15 MINUTES.
[2020-10-25 14:40] LABS: ABG BASE EXCESS 7.6 mmol/L (-2.0-2.0); ARTERIAL BLOOD GAS PH 7.469 (7.35-7.45)
--- NOTE | 2020-10-25 15:00 | NUR ---
VERSED FOR AGITATION. EFFECTIVE FAIRLY IMMEDIATELY.
--- NOTE | 2020-10-25 15:11 | NUR ---
COUSINS AT BEDSIDE TO SEE PT. CONDITION DISCUSSED.
--- NOTE | 2020-10-25 15:14 | NUR ---
DR ACOSTA UPDATED ON PT CONDITION AND ABGS. ORDERS RECEIVED.
--- NOTE | 2020-10-25 15:45 | NUR ---
HALDOL AND TYLENOL GIVEN ORDERED FOR AGITATION AND TEMP 101.4. COOLING BLANKET REMAINS ON.
--- NOTE | 2020-10-25 16:02 | NUR ---
PT HAS DIURESED WELL. 1100 CC EMPTIED FROM FLOYD SINCE 1400. PULSE OX HAS GONE FROM 81 - 87%. HR HAS GONE FROM 140'S TI 120'S.
--- NOTE | 2020-10-25 16:20 | NUR ---
VERSED GIVEN FOR AGITATION, COUGHING AGAINST VENT. THAT, ALONG WITH ONE TIME HALDOL, APPEARS TO BE EFFECTIVE.
--- NOTE | 2020-10-25 17:44 | NUR ---
DR ACOSTA CALLS TO CHECK ON PT CONDITION.
--- NOTE | 2020-10-25 18:34 | NUR ---
[facility] WAS NOTIFIED OF DR ACOSTA'S ORDERS. THEY ARE HERE NOW.
--- NOTE | 2020-10-25 18:44 | NUR ---
[facility] HERE AND ADVANCING ETT FROM 23 TO 25 CM. THEY SPOKE WITH DR ACOSTA ON IPAD.
--- NOTE | 2020-10-25 20:14 | NUR ---
PT MEDICATED WITH VERSED 5MG IV AT TIME DUE TO COUGHING WITH EYES WIDE OPEN AND LOOK OF ANXIOUSNESS AND DISTRESS. PT SUCTIONED AND REPOSITIONED ALSO AT THIS TIME.
--- NOTE | 2020-10-25 20:45 | NUR ---
PT MEDICATED WITH TYLENOL 650MG VIA OGT FOR RECTAL TEMP OF 101.8
[2020-10-26] VITALS (27 sets, daily range): BP systolic 90–158; BP diastolic 41–73
[2020-10-26 06:00] LABS: HEMATOCRIT 21.8 % (42.0-52.0); MEAN CELL VOLUME 99.5 fl (80.0-94.0); MEAN CORPUSCULAR HGB 31.5 pg (27.0-31.0); MEAN CORPUSCULAR HGB CONC 31.7 g/dl (33.0-37.0); MEAN PLATELET VOLUME 10.6 fl (9.6-12.3); NUCLEATED RED BLOOD CELL 0.2 10*3/uL (0.0-0.0); NUCLEATED RED BLOOD CELL 2.2 % (0.0-0.0); PLATELET COUNT AUTOMATED 184 10*3/uL (130-400); RED BLOOD COUNT 2.19 10*6/uL (4.50-5.90); RED CELL DISTRI WIDTH 16.6 % (0-14.5); WHITE BLOOD COUNT 6.9 10*3/uL (4.8-10.8)
[2020-10-26 06:04] LABS: ALBUMIN 2.2 gm/dl (3.1-4.5); ALKALINE PHOSPHATASE 107 U/L (45-117); BUN 24 mg/dl (7-24); CHLORIDE 107 mmol/L (98-107); CREATININE 0.52 mg/dL (0.70-1.30); POTASSIUM 3.9 mmol/L (3.5-5.1); SGOT/AST 31 IU/L (3-35); SGPT/ALT 57 U/L (12-78); SODIUM 143 mmol/L (136-145); TOTAL PROTEIN 6.1 gm/dL (6.4-8.2)
[2020-10-26 07:43] LABS: ABG BASE EXCESS 8.6 mmol/L (-2.0-2.0); ARTERIAL BLOOD GAS PH 7.43 (7.35-7.45)
--- NOTE | 2020-10-26 07:52 | NUR ---
VERSED FOR AGITATION
[2020-10-26 07:58] LABS: PLATELET SUFFICIENCY NORMAL (NORMAL); POLYCHROMASIA SLIGHT; TOTAL CELLS COUNTED 100 #CELLS
--- NOTE | 2020-10-26 08:15 | NUR ---
ADDITIONAL VERSED NOT EFFECTIVE PT CONTINUES TO CHACKO THE VENT, VERSED DRIP INCREASED TO 7, POX DROPPING INTO MID 80'S, ETT SUCTIONED, NO MUSCUS NOTED, RESP CALLED TO ROOM, ETT PLACEMENT RECHECKED BY RESP, VENT CHANGES MADE, DR KARLA REIS, WANTS CURRENT CHANGES LEFT IS UNTILL HE GETS HERE
--- NOTE | 2020-10-26 08:30 | NUR ---
SEDATION VACATION-PT IS NO MORE OR LESS RESPONSIVINESS THAN HE WAS PRIOR EYES DART OPEN, HE DOES NOT APPEAR TO FOCUS ON ANYTHING, OR APPEAR TO RECONIZE VOICE OR TACTILE STIMULI, MORPHINE AT 2MG, VERSED DRIP AT 6
--- NOTE | 2020-10-26 08:30 | NUR ---
PT CONTINUES TO THRASH HEAD AND HIGH PRESSURE ALARM THE VENT, DRIP INCREASED TO 8
--- NOTE | 2020-10-26 09:17 | NUR ---
ADDITIONAL 5 MG VERSED GIVEN WITH LITTLE RESPONSE, DRIP INCREASED TO 10
--- NOTE | 2020-10-26 09:38 | NUR ---
CALLED TO ASSESS PATIENT SATURATION LOW TO MID 80'S. FIO2 INCREASED TO 100% CPAP INCREASED 15. DR ACOSTA NOTIFIED INSTRUCTED TO LEAVE PATIENT ON AC24, 450 100% +15 UNTIL HE COMES TO SEE PATIENT.
--- NOTE | 2020-10-26 10:42 | NUR ---
dr pires notified of elevated temp with blood transfusing, advised to call ID
--- NOTE | 2020-10-26 10:51 | NUR ---
per id, the ordering doctor should decide what to do with the blood but she suggest that we stop the blood and transfuse again later, resident notified blood stopped, lab abd bus driver supervisor notified of possible transfusion reaction
[2020-10-26 11:04] LABS: URINE BLOOD,POST TRANSFUSION 1+ (Negative)
[2020-10-26 11:20] LABS: URINE RBC,POST TRANSFUSION 16-20 rbc/hpf (0-2)
--- NOTE | 2020-10-26 12:57 | NUR ---
VERSED FOR ADDEDE SEDATION DURING ART LINE CHANGE
--- NOTE | 2020-10-26 13:15 | NUR ---
VERSED MODERATELY EFFECTIVE
--- NOTE | 2020-10-26 14:20 | NUR ---
LEVAPHED STARTED AT 4 MCG FOR MAP 52
[2020-10-26 16:19] LABS: ABG BASE EXCESS 7.4 mmol/L (-2.0-2.0); ARTERIAL BLOOD GAS PH 7.42 (7.35-7.45)
--- NOTE | 2020-10-26 17:04 | NUR ---
SEE NN FOR Q15M BP RETO LEVAPHED, UNABLE TO CHART THEM IN THE COMPUTER
--- NOTE | 2020-10-26 19:17 | NUR ---
ANESTHESIA HERE IN UNIT TO INTUBATE ANOTHER PT, INFORMED OF NEED FOR ART LINE CHANGE-HE WILL DO IT IN THE AM HE IS NOT FEELING WELL NOW
--- NOTE | 2020-10-26 19:35 | NUR ---
VERSED EFFECTIVE...PT NOT COUGHING OR CHEWING ON ETT.
--- NOTE | 2020-10-26 19:41 | NUR ---
VERSED IV PUSH FOR PT CHEWING ON ETT AND TYLENOL FOR TEMP OF 102.9. COOLING BLANKET CONTINUES. PT'S EYES ARE OPEN BUT DOES NOT FOLLOW ME. LEVOPHED CONTINUES AT 2MCG/MIN. MORPHINE GTT PER CONTINUOUS REAL ESTATE ASSESSOR AT 2MG/HR. NEW ART LINE TO BE PLACED IN THE AM. PULMOCARE CONTINUES AT 60CC/HR. OGT PLACEMENT VERIFIED BY AUSCULATION/AIR BOLUS OVER EPIGASTRIC AREA PRIOR TO INSTILLATION OF TYLENOL NOTED ABOVE. HOV ELEVATED. HEELS OFF OF BED AND ARMS PROPPED WITH PILLOWS WELL ETT SUPPORTED BY ROLLED TOWEL. IN VIEW OF THIS RN.
--- NOTE | 2020-10-26 20:21 | NUR ---
TYLENOL STARTING TO BE EFFECTIVE. TEMP DOWN TO 102.6.
--- NOTE | 2020-10-26 23:12 | NUR ---
MAP REMAINS >70. LEVOPHED DC'D.
[2020-10-27] VITALS (26 sets, daily range): BP systolic 97–134; BP diastolic 38–668
--- NOTE | 2020-10-27 03:20 | NUR ---
TYLENOL FOR ELEVATED TEMP. COOLING BLANKET CONTINUES.
--- NOTE | 2020-10-27 03:50 | NUR ---
TYLENOL MILDLY EFFECTIVE. TEMP DOWN TO 101.7.
[2020-10-27 06:03] LABS: MEAN CORPUSCULAR HGB CONC 30.2 g/dl (33.0-37.0); MEAN PLATELET VOLUME 11.2 fl (9.6-12.3); NUCLEATED RED BLOOD CELL 0.1 10*3/uL (0.0-0.0); NUCLEATED RED BLOOD CELL 2.3 % (0.0-0.0); PLATELET COUNT AUTOMATED 180 10*3/uL (130-400); RED BLOOD COUNT 2.07 10*6/uL (4.50-5.90); RED CELL DISTRI WIDTH 17.1 % (0-14.5); WHITE BLOOD COUNT 5.1 10*3/uL (4.8-10.8)
[2020-10-27 06:13] LABS: HEMATOCRIT 20.5 % (42.0-52.0)
[2020-10-27 06:20] LABS: ALBUMIN 2.1 gm/dl (3.1-4.5); ALKALINE PHOSPHATASE 102 U/L (45-117); BUN 26 mg/dl (7-24); CHLORIDE 108 mmol/L (98-107); CREATININE 0.64 mg/dL (0.70-1.30); POTASSIUM 4.1 mmol/L (3.5-5.1); SGOT/AST 29 IU/L (3-35); SGPT/ALT 52 U/L (12-78); SODIUM 143 mmol/L (136-145)
[2020-10-27 06:54] LABS: PLATELET SUFFICIENCY NORMAL (NORMAL); POLYCHROMASIA SLIGHT; TOTAL CELLS COUNTED 100 #CELLS
--- NOTE | 2020-10-27 07:50 | NUR ---
VERSED GTT TURNED OFF AT THIS TIME FOR SEDATION VACATION.
[2020-10-27 08:12] LABS: ABG BASE EXCESS 6.6 mmol/L (-2.0-2.0); ARTERIAL BLOOD GAS PH 7.414 (7.35-7.45)
--- NOTE | 2020-10-27 10:04 | NUR ---
VERSED GTT REMAINS OFF. PT NOT FOLLOWING ANY COMMANDS, EYES OPEN SPONTANEOUSLY AT TIMES BUT WILL NOT FOCUS OR FOLLOW COMMANDS.
--- NOTE | 2020-10-27 10:10 | NUR ---
PER POLICY DR NASH WAS NOTIFIED OF PT'S TEMP OF 100.8 PRIOR TO STARTING BLOOD TRANSFUSION. ORDER TO GIVE TYLENOL.
--- NOTE | 2020-10-27 11:21 | NUR ---
RIGHT SUBCLAVIAN MEDIPORT ACCESSED PER DR GROVE ORDER TO OBTAIN BLOOD CULTURE FROM MEDIPORT SITE.
--- NOTE | 2020-10-27 12:56 | NUR ---
DR CHAMPION MADE AWARE OF NEW CONSULT ORDER FOR MEDIPORT REMOVAL.
--- NOTE | 2020-10-27 14:13 | NUR ---
I SPOKE WITH DR NASH TO CLARIFY THAT THEY STILL WANT HEPARIN SUBQ GIVEN TO PT AND HE STATED YES AT THIS TIME.
[2020-10-27 16:42] LABS: ABG BASE EXCESS 5.9 mmol/L (-2.0-2.0); ARTERIAL BLOOD GAS PH 7.429 (7.35-7.45)
--- NOTE | 2020-10-27 16:53 | NUR ---
NEW ART LINE PLACED TO LEFT BRACHIAL ARTERY PER HARRIET IRAHETA CRNA. PT TOLERATED WELL.
--- NOTE | 2020-10-27 17:50 | NUR ---
FIO2 DECREASED TO 65% ABG IN 2 HOURS
--- NOTE | 2020-10-27 17:50 | NUR ---
FIO2 DECREASED TO 65% PER DR GODWIN ORDER ABGS IN 2 HOURS.
--- NOTE | 2020-10-27 19:27 | NUR ---
24 HR chart check completed.
--- NOTE | 2020-10-27 19:32 | NUR ---
24 HR chart check completed.
--- NOTE | 2020-10-27 19:35 | NUR ---
Patient temp reading, 102.6, patient also tachy, tylenol given. Will monitor and reassess.
--- NOTE | 2020-10-27 20:30 | NUR ---
Patients temp only came down to 102. Placed cooling blanket under patient, will monitor and reassess.
[2020-10-27 21:00] LABS: ABG BASE EXCESS 6.5 mmol/L (-2.0-2.0); ARTERIAL BLOOD GAS PH 7.401 (7.35-7.45)
[2020-10-27 23:00] LABS: HEMATOCRIT 56.5 % (42.0-52.0); MEAN CORPUSCULAR HGB 29.4 pg (27.0-31.0); MEAN CORPUSCULAR HGB CONC 31.5 g/dl (33.0-37.0); NUCLEATED RED BLOOD CELL 0.3 10*3/uL (0.0-0.0); NUCLEATED RED BLOOD CELL 9.9 % (0.0-0.0); RED BLOOD COUNT 6.05 10*6/uL (4.50-5.90); RED CELL DISTRI WIDTH 20.1 % (0-14.5); WHITE BLOOD COUNT 2.6 10*3/uL (4.8-10.8)
[2020-10-27 23:01] LABS: MEAN CELL VOLUME 93.4 fl (80.0-94.0); PLATELET COUNT AUTOMATED 94 10*3/uL (130-400)
[2020-10-27 23:06] LABS: BURR CELLS FEW; OVALOCYTES FEW; TOTAL CELLS COUNTED 100 #CELLS
[2020-10-27 23:07] LABS: PLATELET SUFFICIENCY NORMAL (NORMAL)
[2020-10-28] VITALS: BP 127/67
--- NOTE | 2020-10-28 03:55 | NUR ---
Patients temp now at 103, tylenol given, ice packs placed and patient is still on cooling blanket. Will monitor and reassess.
[2020-10-28 04:02] VITALS: BP 126/70
--- NOTE | 2020-10-28 05:26 | NUR ---
Patients temp now 101. Monitoring.
[2020-10-28 05:53] LABS: ALBUMIN 1.8 gm/dl (3.1-4.5); BUN 24 mg/dl (7-24); CHLORIDE 109 mmol/L (98-107); CREATININE 0.61 mg/dL (0.70-1.30); LDH 437 U/L (87-241); POTASSIUM 4.3 mmol/L (3.5-5.1); SGOT/AST 42 IU/L (3-35); SGPT/ALT 59 U/L (12-78); SODIUM 146 mmol/L (136-145); TOTAL PROTEIN 5.8 gm/dL (6.4-8.2)
[2020-10-28 05:54] LABS: ALKALINE PHOSPHATASE 115 U/L (45-117); CPK 51 U/L (39-308)
[2020-10-28 06:24] LABS: HEMATOCRIT 24.2 % (42.0-52.0); MEAN CELL VOLUME 94.2 fl (80.0-94.0); MEAN CORPUSCULAR HGB 29.6 pg (27.0-31.0); MEAN CORPUSCULAR HGB CONC 31.4 g/dl (33.0-37.0); MEAN PLATELET VOLUME 11.5 fl (9.6-12.3); NUCLEATED RED BLOOD CELL 0.1 10*3/uL (0.0-0.0); NUCLEATED RED BLOOD CELL 2.6 % (0.0-0.0); RED BLOOD COUNT 2.57 10*6/uL (4.50-5.90); RED CELL DISTRI WIDTH 18.5 % (0-14.5); WHITE BLOOD COUNT 4.3 10*3/uL (4.8-10.8)
[2020-10-28 06:32] LABS: PLATELET COUNT AUTOMATED 159 10*3/uL (130-400)
[2020-10-28 07:06] LABS: PLATELET SUFFICIENCY NORMAL (NORMAL); POLYCHROMASIA SLIGHT; TOTAL CELLS COUNTED 100 #CELLS
[2020-10-28 08:00] VITALS: BP 165/79
[2020-10-28 08:08] LABS: ABG BASE EXCESS 5.8 mmol/L (-2.0-2.0); ARTERIAL BLOOD GAS PH 7.41 (7.35-7.45)
--- NOTE | 2020-10-28 09:00 | NUR ---
patient remains intubated. discharge plan undecided at this time. case management will follow
--- NOTE | 2020-10-28 11:38 | NUR ---
tylenol for temp 102.2
[2020-10-28 12:00] VITALS: BP 147/68
--- NOTE | 2020-10-28 12:30 | NUR ---
tylenol minimally effective pt remains on cooling blanket\no change in mental status
--- NOTE | 2020-10-28 14:30 | NUR ---
MORPHINE TURNED OFF
[2020-10-28 16:00] VITALS: BP 133/70
--- NOTE | 2020-10-28 19:46 | NUR ---
NO CHANGES. ORAL CARE DONE AND PT SUCTIONED HE WAS COUGHING AGAINST THE VENT. HOB ELEVATED. HEELS OFF OF BED. ETT IS AT CORRECT LIP MEASUREMENT. OGT PLACEMENT VERIFIED BY AIR BOLUS/AUSCULTATION OVER EPIGASTRIC AREA.
[2020-10-28 20:00] VITALS: BP 111/75
[2020-10-28 20:50] LABS: HEMATOCRIT 27.6 % (42.0-52.0); MEAN CELL VOLUME 96.8 fl (80.0-94.0); MEAN CORPUSCULAR HGB 29.5 pg (27.0-31.0); MEAN CORPUSCULAR HGB CONC 30.4 g/dl (33.0-37.0); MEAN PLATELET VOLUME 11.5 fl (9.6-12.3); NUCLEATED RED BLOOD CELL 0.1 10*3/uL (0.0-0.0); PLATELET COUNT AUTOMATED 149 10*3/uL (130-400); RED BLOOD COUNT 2.85 10*6/uL (4.50-5.90); RED CELL DISTRI WIDTH 18.1 % (0-14.5); WHITE BLOOD COUNT 4.9 10*3/uL (4.8-10.8)
[2020-10-28 21:29] LABS: TOTAL CELLS COUNTED 100 #CELLS
[2020-10-28 21:30] LABS: PLATELET SUFFICIENCY NORMAL (NORMAL)
--- NOTE | 2020-10-28 22:19 | NUR ---
DR ACOSTA UPDATED ON PT CONDITION. INQUIRED ON USE OF VERSED GTT (IN MY ORDERS TO ACKNOWLEDGE AND PHARMACY SENT UP GTT).... ORDERS TO HOLD ON VERSED GTT AND TO ONLY GIVE Q1H PRN. PHARMACY NOTIFIED.
--- NOTE | 2020-10-28 23:50 | NUR ---
VERSED FOR CONSTANT COUGHING AGAINST THE VENT.
[2020-10-29] VITALS: BP 143/78
--- NOTE | 2020-10-29 01:00 | NUR ---
VERSED FOR COUGHING. EFFECTIVE FOR A SHORT TIME.
--- NOTE | 2020-10-29 02:28 | NUR ---
BATH/LINENS CHANGED. VERSED FOR COUGHING.
--- NOTE | 2020-10-29 03:40 | NUR ---
VERSED GIVEN AT 0330 EFFECTIVE FOR SEDATION PT WAS COUGHING.
[2020-10-29 04:00] VITALS: BP 147/79
--- NOTE | 2020-10-29 05:47 | NUR ---
OFF OF BIPAP TO 8L HF NASAL CANNULA. DRANK TWO CUPS OF ICE WATER. PULSE OX REMAINS MID TO UPPER 90'S.
[2020-10-29 05:56] LABS: ALBUMIN 1.9 gm/dl (3.1-4.5); ALKALINE PHOSPHATASE 132 U/L (45-117); BUN 17 mg/dl (7-24); CHLORIDE 109 mmol/L (98-107); CREATININE 0.51 mg/dL (0.70-1.30); LDH 523 U/L (87-241); POTASSIUM 4.1 mmol/L (3.5-5.1); SGOT/AST 34 IU/L (3-35); SGPT/ALT 67 U/L (12-78); SODIUM 146 mmol/L (136-145); TOTAL PROTEIN 6.6 gm/dL (6.4-8.2)
[2020-10-29 06:03] LABS: CPK 30 U/L (39-308)
[2020-10-29 06:22] LABS: MEAN CELL VOLUME 95.9 fl (80.0-94.0); MEAN CORPUSCULAR HGB 29.5 pg (27.0-31.0); MEAN CORPUSCULAR HGB CONC 30.7 g/dl (33.0-37.0); NUCLEATED RED BLOOD CELL 0.1 10*3/uL (0.0-0.0); NUCLEATED RED BLOOD CELL 1.5 % (0.0-0.0); PLATELET COUNT AUTOMATED 160 10*3/uL (130-400); RED BLOOD COUNT 2.92 10*6/uL (4.50-5.90); RED CELL DISTRI WIDTH 17.3 % (0-14.5); WHITE BLOOD COUNT 4.7 10*3/uL (4.8-10.8)
[2020-10-29 07:14] LABS: OVALOCYTES FEW; PLATELET SUFFICIENCY NORMAL (NORMAL); ROULEAUX SLIGHT; TOTAL CELLS COUNTED 100 #CELLS
[2020-10-29 07:43] LABS: ABG BASE EXCESS 5.9 mmol/L (-2.0-2.0); ARTERIAL BLOOD GAS PH 7.397 (7.35-7.45)
[2020-10-29 08:00] VITALS: BP 141/75
--- NOTE | 2020-10-29 08:47 | NUR ---
VERSED GIVEN DUE TO ELEVATED HEART RATE OF 130'S. BP 160'S SYSTOLIC. RESP RATE 40'S.
--- NOTE | 2020-10-29 08:47 | NUR ---
PT'S RECTAL TEMP 101.0 HEART RATE UP TO 130'S. 650MG OF TYLENOL GIVEN AND PLACED BACK ON COOLING BLANKET.
--- NOTE | 2020-10-29 09:55 | NUR ---
PT HEART RATE 137. BP 124/69 AND TEMP DOWN TO 100, RESP RATE 37 AFTER VERSED AND TYLENOL GIVEN.
--- NOTE | 2020-10-29 11:48 | NUR ---
patient remains on vent, discharge plan undecided at this time
[2020-10-29 12:00] VITALS: BP 137/73
[2020-10-29 16:00] VITALS: BP 150/77
[2020-10-29 20:00] VITALS: BP 154/77
--- NOTE | 2020-10-29 20:00 | NUR ---
PT RESTING IN BED WITH EYES CLOSED. ENDOTUBE PATENT, TIES SECURE, VENT SETTINGS VERIFIED AND FUNCTIONING WITHOUT DIFFICULTY. OGT PATENT, PLACEMENT VERIFIED VIA AIR BOLUS. TF KEYA WELL. RIGHT PICC, RIGHT MEDIPORT, AND LEFT ARTLINE PATENT, DRESSINGS DRY AND INTACT. FLOYD PATENT FOR DARK DIMPLE URINE. GEN EDEMA NOTED. NO S/S OF HYPO/HYPERGLYCEMIA NOTED.
[2020-10-30] VITALS: BP 149/75
[2020-10-30 04:00] VITALS: BP 144/74
--- NOTE | 2020-10-30 06:00 | NUR ---
VERSED GIVEN PER PRN ORDER FOR SEDATION THROUGHOUT SHIFT HAS BEEN EFFECTIVE.
[2020-10-30 07:32] LABS: ABG BASE EXCESS 4.8 mmol/L (-2.0-2.0); ARTERIAL BLOOD GAS PH 7.374 (7.35-7.45)
[2020-10-30 07:41] LABS: HEMATOCRIT 27.3 % (42.0-52.0); MEAN CELL VOLUME 96.5 fl (80.0-94.0); MEAN CORPUSCULAR HGB 29.3 pg (27.0-31.0); MEAN CORPUSCULAR HGB CONC 30.4 g/dl (33.0-37.0); NUCLEATED RED BLOOD CELL 0.1 10*3/uL (0.0-0.0); NUCLEATED RED BLOOD CELL 1.6 % (0.0-0.0); PLATELET COUNT AUTOMATED 160 10*3/uL (130-400); RED BLOOD COUNT 2.83 10*6/uL (4.50-5.90); RED CELL DISTRI WIDTH 16.6 % (0-14.5); WHITE BLOOD COUNT 4.9 10*3/uL (4.8-10.8)
[2020-10-30 07:58] LABS: ALBUMIN 1.7 gm/dl (3.1-4.5); ALKALINE PHOSPHATASE 153 U/L (45-117); BUN 20 mg/dl (7-24); CHLORIDE 110 mmol/L (98-107); CPK 26 U/L (39-308); CREATININE 0.51 mg/dL (0.70-1.30); LDH 476 U/L (87-241); POTASSIUM 3.5 mmol/L (3.5-5.1); SGOT/AST 32 IU/L (3-35); SGPT/ALT 70 U/L (12-78); SODIUM 146 mmol/L (136-145); TOTAL PROTEIN 6.3 gm/dL (6.4-8.2)
[2020-10-30 08:00] VITALS: BP 155/73
--- NOTE | 2020-10-30 08:00 | NUR ---
UNRESPONSIVE TO VERBAL, TACTILE AND PAINFUL STIMULI DOES NOT APPEAR TO FOCUS WHEN EYES ARE OPEN ETT AT 25CM, ALL LINES SECURE
[2020-10-30 08:11] LABS: ATYPICAL LYMPHS 1 % (0-0); PLATELET SUFFICIENCY NORMAL (NORMAL); POLYCHROMASIA SLIGHT; TOTAL CELLS COUNTED 100 #CELLS
--- NOTE | 2020-10-30 11:30 | NUR ---
SISTER IN TO VS
[2020-10-30 12:00] VITALS: BP 146/70
--- NOTE | 2020-10-30 12:30 | NUR ---
or aware of need to prone pt
--- NOTE | 2020-10-30 15:00 | NUR ---
or reminded of need to prone, current surgery just ended
--- NOTE | 2020-10-30 15:30 | NUR ---
pt proned with anesthesia tube feeds started at 20 versed given prior to proning and has been effective
--- NOTE | 2020-10-30 15:52 | NUR ---
PT WAS PRONED AT 1545. PT TOLERATED WELL. ENDOTUBE INTACT. ABGS IN 2 HRS
[2020-10-30 16:00] VITALS: BP 163/79
[2020-10-30 18:03] LABS: ABG BASE EXCESS 4.9 mmol/L (-2.0-2.0); ARTERIAL BLOOD GAS PH 7.388 (7.35-7.45)
[2020-10-30 20:00] VITALS: BP 169/91
--- NOTE | 2020-10-30 20:00 | NUR ---
PT RESTING IN BED WITH EYES CLOSE, ENDOTUBE PATENT, TIES SECURE, VENT SETTINGS VERIFIED AND FUNCTIONING WITHOUT DIFFICULTY. OGT PATENT, PLACEMENT VERIFIED VIA AIR BOLUS AND TF KEYA WELL. RIGHT PICC AND LEFT ART LINE PATENT, DRESSINGS DRY AND INTACT. FLOYD PATENT FOR DARK DIMPLE URINE. MEDICATED WITH VERSED PER PRN ORDER FOR COUGHING AND INCREASED RR. NO S/S OF HYPO/HYPERGLYCEMIA NOTED. ISOLATION PRECAUTIONS MAINTAINED.
--- NOTE | 2020-10-30 20:15 | NUR ---
MEDICATED WITH TYLENOL PER PRN ORDER FOR T 101.1(R) AND COOLING BLANKET LAYED OVER TOP OF PT WHILE PRONED.
--- NOTE | 2020-10-30 23:17 | NUR ---
PATIENT IN THE PRONE POSTION FROM DAY SHIFT, SUPINE POSITION AT 0700 ON 10/31, PATIENT SHOWING SIGNS OF AGITATION. PATIENT HAS MOVED HEAD MULTIPLE TIME, MOVED HIS ARMS,AND HAS TRIED TO PUSH HIMSELF UP. PATIENT ON VERSED PRN, CONTINUING TO MONITOR THE TUBE PLACEMENT, RN AWARE
[2020-10-31] VITALS: BP 135/78
--- NOTE | 2020-10-31 03:30 | NUR ---
PT VENT ALARMING TIDAL VOLUME NOT DELIVERED. RESP CALLED TO CHECK VENT. VENT CHECKED PER RESPIRATORY AND CALLED DR ACOSTA. ORDER TO UNPRONE PT. PT UNPRONED AND OGT SLID OUT. OGT REINSERTED AND PLACEMENT VERIFIED VIA AIR BOLUS AND WILL HAVE CXR TO VERIFY PLACEMENT. FIO2 INCREASED TO 100%. PT BATHED AND PLACED BACK ON COOLING BLANKET.
[2020-10-31 04:00] VITALS: BP 128/71
--- NOTE | 2020-10-31 04:08 | NUR ---
patient was found with a "high peak pressure" or "high pressure limit reached" alarms with tidal volumes in the 100-[address] sarmiento contacted to un prone the patient. he had no problem with this process. on further examination the suction catheter was unable to pass through the endotracheal tube.after the patient was unproned he was given versed to relax him. his spo2 was at 87%. upon looking at his vent settings i noticed that his i time was set to 1.2. i changed this to 0.7. after this changed he had positive changes to his spo2(92), peak pressure(32), tidal volume(530's consistent. patient resting comfortably at this time. rn aware.
--- NOTE | 2020-10-31 06:00 | NUR ---
MEDICATED WITH VERSED PER PRN ORDER SEVERAL TIMES THROUGHOUT SHIFT AND HAS BEEN EFFECTIVE FOR SHORT TIME.
[2020-10-31 06:08] LABS: HEMATOCRIT 25.1 % (42.0-52.0); MEAN CELL VOLUME 98.4 fl (80.0-94.0); MEAN CORPUSCULAR HGB 29.4 pg (27.0-31.0); MEAN CORPUSCULAR HGB CONC 29.9 g/dl (33.0-37.0); MEAN PLATELET VOLUME 11.4 fl (9.6-12.3); NUCLEATED RED BLOOD CELL 0.1 10*3/uL (0.0-0.0); PLATELET COUNT AUTOMATED 177 10*3/uL (130-400); RED BLOOD COUNT 2.55 10*6/uL (4.50-5.90); RED CELL DISTRI WIDTH 16.4 % (0-14.5)
[2020-10-31 06:27] LABS: ALBUMIN 1.6 gm/dl (3.1-4.5); ALKALINE PHOSPHATASE 143 U/L (45-117); BUN 25 mg/dl (7-24); CHLORIDE 111 mmol/L (98-107); CREATININE 0.78 mg/dL (0.70-1.30); LDH 459 U/L (87-241); POTASSIUM 3.7 mmol/L (3.5-5.1); SGOT/AST 33 IU/L (3-35); SGPT/ALT 64 U/L (12-78); SODIUM 148 mmol/L (136-145)
[2020-10-31 06:41] LABS: PLATELET SUFFICIENCY NORMAL (NORMAL); TOTAL CELLS COUNTED 100 #CELLS
[2020-10-31 06:42] LABS: CPK 40 U/L (39-308)
[2020-10-31 08:00] VITALS: BP 155/78
[2020-10-31 08:02] LABS: ABG BASE EXCESS 3.9 mmol/L (-2.0-2.0); ARTERIAL BLOOD GAS PH 7.341 (7.35-7.45)
--- NOTE | 2020-10-31 08:30 | NUR ---
DR MORRIS UPDATED ON WOUNC DRSG ORDERS NEEDED
[2020-10-31 12:00] VITALS: BP 147/70
[2020-10-31 16:00] VITALS: BP 112/57
[2020-10-31 20:00] VITALS: BP 114/62
--- NOTE | 2020-10-31 20:25 | NUR ---
NOTIFIED DR ACOSTA OF PT HR 150/MIN, RR 40'S, COUGHING/HIGH PEAK PRESSURE ALARMING VENT. ORDERS RECEIVED TO RENEW VERSED Q1H PRN.
--- NOTE | 2020-10-31 20:30 | NUR ---
VERSED GIVEN ORDERED FOR SEDATION.
--- NOTE | 2020-10-31 20:55 | NUR ---
DR DEL VALLE NOTIFIED OF TACHYCARDIA IN 150'S AT THIS TIME.
--- NOTE | 2020-10-31 21:58 | NUR ---
SHEELA FROM "[employer]" CALLS WITH A MED AT [facility]. BED 482-[address] EASON. CALL [phone] FOR NURSE TO NURSE REPORT. [facility] SET UP AND ETA 20 MINUTES. PT'S SISTER NOTIFIED AND COMING TO SEE PT BEFORE HE LEAVES. VERSED GIVEN AT 2130 ONLY MILDLY EFFECTIVE FOR TACHYPNEA. LIVAN DEL VALLE AND KARLA BOTH AWARE PT BEING TRANSFERRED TO [facility] TONIGHT.
--- NOTE | 2020-10-31 22:26 | NUR ---
SISTER AT BEDSIDE. AWAITING [facility] ARRIVAL.
--- NOTE | 2020-10-31 22:46 | NUR ---
[facility] HERE. REPORT AND PACKET (WITH CD OF FILMS) GIVEN TO THEM.
--- NOTE | 2020-10-31 22:50 | NUR ---
I HAVE ATTEMPTED TO CALL NURSE TO NURSE REPORT AT THIS TIME, BUT NO ONE ANSWERS.
--- NOTE | 2020-10-31 23:07 | NUR ---
AGAIN, NO ANSWER WHEN TRYING TO CALL NURSE TO NURSE REPORT.
--- NOTE | 2020-10-31 23:15 | NUR ---
ANOTHER FAILED ATTEMPT TO REACH [facility] FOR NURSE TO NURSE REPORT.
--- NOTE | 2020-10-31 23:19 | NUR ---
AGAIN, TRIED TO CALL REPORT WITH NO ANSWER.
--- NOTE | 2020-10-31 23:25 | NUR ---
PT DISCHARGED WITH [facility]. I INFORMED THEM THAT I AM UNABLE TO REACH NURSE TO GIVE PHONE REPORT. THEY GAVE ME ANOTHER NUMBER TO CALL AND HAVE THEM TRANSFER. UNABLE TO GIVE REPORT BUT LEFT MY NAME WITH MY PHONE NUMBER FOR NURSE TO CALL ME.
--- NOTE | 2020-10-31 23:50 | NUR ---
REPORT GIVEN TO RN AT [facility].
== END 2020-10-31 23:25 | disposition short-term general hospital (02) | DRG 870 ==
LOC: ED 11:03 → ICCU 16:23 → EDHOLD 16:23 → ICCU 19:35
PROVIDERS: Emergency Medicine; Family Medicine; Internal Medicine; Internal Medicine Critical Care Medicine; Social Worker Clinical; Student in an Organized Health Care Education/Training Program; Surgery; ADMIT Internal Medicine; ATTEND Internal Medicine
PROC: 5A09357 Assistance with Respiratory Ventilation, Less than 24 Consecutive Hours, Continuous Positive Airway Pressure (ICD-10-PCS; 2020-10-13)
PROC: XW033E5 Introduction of Remdesivir Anti-infective into Peripheral Vein, Percutaneous Approach, New Technology Group 5 (ICD-10-PCS; 2020-10-13)
PROC: 5A1955Z Respiratory Ventilation, Greater than 96 Consecutive Hours (ICD-10-PCS; principal; 2020-10-14)
PROC: 0BH18EZ Insertion of Endotracheal Airway into Trachea, Via Natural or Artificial Opening Endoscopic (ICD-10-PCS; 2020-10-14)
PROC: 03HY33Z Insertion of Infusion Device into Upper Artery, Percutaneous Approach (ICD-10-PCS; 2020-10-14)
PROC: B34HZZZ Ultrasonography of Right Upper Extremity Arteries (ICD-10-PCS; 2020-10-14)
PROC: 02HV33Z Insertion of Infusion Device into Superior Vena Cava, Percutaneous Approach (ICD-10-PCS; 2020-10-14)
PROC: B548ZZA Ultrasonography of Superior Vena Cava, Guidance (ICD-10-PCS; 2020-10-14)
PROC: 0BC28ZZ Extirpation of Matter from Carina, Via Natural or Artificial Opening Endoscopic (ICD-10-PCS; 2020-10-23)
PROC: 0BC18ZZ Extirpation of Matter from Trachea, Via Natural or Artificial Opening Endoscopic (ICD-10-PCS; 2020-10-23)
PROC: 0BC98ZZ Extirpation of Matter from Lingula Bronchus, Via Natural or Artificial Opening Endoscopic (ICD-10-PCS; 2020-10-23)
PROC: 0BC48ZZ Extirpation of Matter from Right Upper Lobe Bronchus, Via Natural or Artificial Opening Endoscopic (ICD-10-PCS; 2020-10-23)
PROC: 0BC88ZZ Extirpation of Matter from Left Upper Lobe Bronchus, Via Natural or Artificial Opening Endoscopic (ICD-10-PCS; 2020-10-23)
PROC: 0BC38ZZ Extirpation of Matter from Right Main Bronchus, Via Natural or Artificial Opening Endoscopic (ICD-10-PCS; 2020-10-23)
PROC: 0BC78ZZ Extirpation of Matter from Left Main Bronchus, Via Natural or Artificial Opening Endoscopic (ICD-10-PCS; 2020-10-23)
PROC: 0BC68ZZ Extirpation of Matter from Right Lower Lobe Bronchus, Via Natural or Artificial Opening Endoscopic (ICD-10-PCS; 2020-10-23)
PROC: 0BCB8ZZ Extirpation of Matter from Left Lower Lobe Bronchus, Via Natural or Artificial Opening Endoscopic (ICD-10-PCS; 2020-10-23)
PROC: 0BC58ZZ Extirpation of Matter from Right Middle Lobe Bronchus, Via Natural or Artificial Opening Endoscopic (ICD-10-PCS; 2020-10-23)
PROC: 05HY33Z Insertion of Infusion Device into Upper Vein, Percutaneous Approach (ICD-10-PCS; 2020-10-23)
PROC: 30233N1 Transfusion of Nonautologous Red Blood Cells into Peripheral Vein, Percutaneous Approach (ICD-10-PCS; 2020-10-26)
PROC: B34JZZZ Ultrasonography of Left Upper Extremity Arteries (ICD-10-PCS; 2020-10-27)
PROC: 03HY33Z Insertion of Infusion Device into Upper Artery, Percutaneous Approach (ICD-10-PCS; 2020-10-27)
PROC: 5A0935A Assistance with Respiratory Ventilation, Less than 24 Consecutive Hours, High Flow/Velocity Cannula (ICD-10-PCS; 2020-10-29)
DX: A41.89 Other specified sepsis (principal); U07.1 COVID-19; J12.89 Other viral pneumonia; E43 Unspecified severe protein-calorie malnutrition; J80 Acute respiratory distress syndrome; J13 Pneumonia due to Streptococcus pneumoniae; J18.0 Bronchopneumonia, unspecified organism; E44.0 Moderate protein-calorie malnutrition; C71.9 Malignant neoplasm of brain, unspecified; E87.2 Acidosis; E87.1 Hypo-osmolality and hyponatremia; J98.11 Atelectasis; D68.59 Other primary thrombophilia; E87.0 Hyperosmolality and hypernatremia; T17.590A Other foreign object in bronchus causing asphyxiation, initial encounter; T80.211A Bloodstream infection due to central venous catheter, initial encounter; B49 Unspecified mycosis; R65.20 Severe sepsis without septic shock; Z66 Do not resuscitate; D53.9 Nutritional anemia, unspecified; R73.9 Hyperglycemia, unspecified; E83.41 Hypermagnesemia; R74.01 Elevation of levels of liver transaminase levels; E83.39 Other disorders of phosphorus metabolism; E87.6 Hypokalemia; E78.1 Pure hyperglyceridemia; Z79.899 Other long term (current) drug therapy; E66.9 Obesity, unspecified; E78.00 Pure hypercholesterolemia, unspecified; B95.8 Unspecified staphylococcus as the cause of diseases classified elsewhere; Z51.5 Encounter for palliative care; D63.8 Anemia in other chronic diseases classified elsewhere; I45.81 Long QT syndrome; X58.XXXA Exposure to other specified factors, initial encounter; Y93.9 Activity, unspecified; Y99.8 Other external cause status; Y83.8 Other surgical procedures as the cause of abnormal reaction of the patient, or of later complication, without mention of misadventure at the time of the procedure; Y92.238 Other place in hospital as the place of occurrence of the external cause; Z68.30 Body mass index [BMI] 30.0-30.9, adult; D50.0 Iron deficiency anemia secondary to blood loss (chronic); Z79.1 Long term (current) use of non-steroidal anti-inflammatories (NSAID)